=== PATIENT | male | born 1965 | race Caucasian/White ===

== ENCOUNTER 2018-12-30 07:21 | Emergency (ER) | payer OTHER, SELFPAY ==
[2018-12-30] VITALS (7 sets, daily range): BP systolic 155–178; BP diastolic 81–105; PULSE 62–71; RESP 13–18; TEMP 36.9; O2SAT 98–100
--- NOTE | 2018-12-30 07:55 | DI.RAD.S_ITS ---
PROCEDURE: XR CHEST 2V INDICATIONS: dyspnea TECHNIQUE: 2 views of the chest were acquired. COMPARISON: None. FINDINGS: Surgical changes and devices: None. Lungs and pleura: Interstitial prominence and a few Mica B lines most compatible pulmonary edema versus atypical pneumonia. No pleural effusions or pneumothorax. Mediastinum: Mediastinal contours are normal. Heart size is normal. Bones and chest wall: No suspicious bony abnormalities. Soft tissues appear unremarkable. IMPRESSION: Interstitial prominence and Mica B-lines compatible pulmonary edema versus atypical pneumonia. Dictated by: Jessy Vega MD, PhD on 12/30/2018 at 8:22 Approved by: Jessy Vega MD, PhD on 12/30/2018 at 8:23
--- NOTE | 2018-12-30 07:57 | ED.SOB ---
HPI - SOB/Dyspnea General Chief Complaint: Shortness of Breath/Dyspnea Stated Complaint: shortness of breath Time Seen by Provider: 12/30/18 07:32 Source: patient and family Mode of arrival: ambulatory Limitations: no limitations History of Present Illness Patient comes to the emergency department complaining of shortness of breath that has been ongoing, but that seemed worse since last night. Patient states he noticed that whenever he laid down, his chest felt tight, and it felt as though his abdomen was full and he could not get a deep breath in. Patient states this has happened before, but that this time, he does not seem to be getting over it. Patient ended up getting up out of bed and sitting upright in a chair, and states this helped somewhat, but not completely. Patient states he did not really sleep last night because he could not find a comfortable position for his breathing, and also, he was doing a lot of coughing. Patient's states that he was also bringing up a lot of phlegm. Patient states that he has been able to walk around, but he does become out of breath when he does this. He states these are not necessarily new problems, and have been going on for months, since he was diagnosed with end-stage renal disease. Patient does dialysis treatments 3 times a week, and states that at his last visit, they were only able to do dialysis for an hour, because they could not get the needle properly placed. Patient states that normally, his dialysis lasts for 4 hours, and he loses several kg of weight between the beginning in the end. He states this time, he only lost 0.8 kg. Patient states he is due for dialysis treatment today at 4:00 p.m.. Patient states he has no history of any lung disease. No asthma or COPD. He has never been a smoker. Patient states he was not known to have any cardiac issues until undergoing a stress test and coronary artery CT angio this month, which showed ?some blockages?. Patient states this was done down at [facility], because he has seen the transplant team down there, in hopes of having a kidney transplant. He states that they were trying to get him in to see a fruit picker through [facility], but that they gave him an appointment on February 26. Patient states he has been under lot of stress because he is not sure how bad his coronary artery disease is and if his chest symptoms are related to this or his kidney disease. The patient has no history of congestive heart failure. He states that other than the ongoing symptoms since last night, his shortness of breath episodes have been fairly stable. Patient has a history of diabetes and hypertension, but states that his renal failure is thought to have been precipitated by nephritis, which she was diagnosed with a number of years ago, prior to the diagnosis of diabetes or hypertension. 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 Patient states that currently, sitting in the bed, he feels the need to occasionally take a deep breath, but that he is doing a little better now than he was. No current chest pain. Patient states his chest feels ?a little tight?. No radiation. Patient has chronic nausea in the mornings which has been ongoing for months. No diaphoresis or lightheadedness. No other complaints at this time. Related Data Home Medications Medication Instructions Recorded Confirmed carvedilol 12.5 mg PO BID 12/30/18 12/30/18 hydralazine 25 mg PO BID 12/30/18 12/30/18 lisinopril 40 mg PO BID 12/30/18 12/30/18 sevelamer carbonate 1,600 mg PO TID 12/30/18 12/30/18 Allergies Allergy/AdvReac Type Severity Reaction Status Date / Time No Known Allergies Allergy Uncoded 08/19/17 20:24 Review of Systems Constitutional Denies chills, Denies fever(s), Denies lethargy and Denies weakness Eyes Denies change in vision, Denies eye discharge, Denies irritation and Denies loss of vision ENT Ears, Nose, Mouth, and Throat: Denies change in voice, Denies neck pain and Denies sore throat Cardiovascular Denies chest pain, Denies irregular heart rhythm, Denies lightheadedness, Denies palpitations, Reports dyspnea, Reports dyspnea on exertion and Denies orthopnea Respiratory Reports cough, Reports dyspnea, Reports dyspnea on exertion and Denies wheezing Gastrointestinal Gastrointestinal: Denies abdominal pain, Denies change in bowel habits, Denies diarrhea, Denies nausea and Denies vomiting Genitourinary Denies hematuria, Denies flank pain, Denies urinary incontinence and Denies urinary urgency Musculoskeletal Denies neck pain Integumentary/Breasts Denies pruritus, Denies erythema, Denies rash and Denies wounds Neurologic Denies confusion, Denies loss of vision and Denies weakness Psychiatric Denies anxiety, Denies confusion, Denies depression, Denies homicidal ideation and Denies suicidal ideation Endocrine Denies palpitations Hematologic/Lymphatic Denies easy bruising Allergic/Immunologic Denies wheezing [facility] Medical History Presence of arterial-venous shunt (for dialysis) (Acute) End stage renal disease on dialysis (Acute) Diabetes (Acute) HTN (hypertension) (Acute) Social History (Updated 12/30/18 @ 08:06 by Mary Fang MD) Smoking Status: Never smoker Exam Narrative Exam Narrative: Patient briskly ambulates to the exam room without difficulty, speaking in full sentences while ambulating, without labored respirations. Initial Vital Signs Initial Vital Signs: Vital Signs Temperature 98.4 F 12/30/18 07:30 Pulse Rate 71 12/30/18 07:30 Respiratory Rate 14 12/30/18 07:30 Blood Pressure 165/105 H 12/30/18 07:30 Pulse Oximetry 100 12/30/18 07:30 Const General: cooperative and well developed Nutritional Appearance: well nourished Orientation: alert, awake, oriented x3 and not confused [facility] Head: normocephalic and atraumatic Ears: external ears normal Nose: external nose normal and No nasal discharge Face and sinus: face symmetric and No dry mucous membranes Mouth: oral mucosae normal and moist mucous membranes Teeth and gingiva: dentition normal Eyes General: appearance normal, both eyes and all related structures Eyelids: eyelids normal Conjunctivae: conjunctivae normal Sclera: sclerae normal Pupils: PERRL EOM: EOM intact bilaterally Neck Neck: normal visual inspection, trachea midline, No lymphadenopathy, No midline deformity and No JVD Lymphatic: No lymphedema Chest Chest: normal inspection of the chest Resp Effort & Inspection: normal respiratory effort, able to speak in complete sentences, no respiratory distress and no use of accessory muscles Auscultation: clear to auscultation bilaterally, no rales, no rhonchi and no wheezes Other: Patient is able to carry on conversation without difficulty during the entire history taking. Cardio Rate: regular rate Rhythm: regular rhythm Heart Sounds: no click, no gallops, no murmurs and no rubs Pulses: normal peripheral pulses GI Inspection: non-distended Palpation: soft, no hepatosplenomegaly, No guarding, No pulsatile mass and No tender Auscultation: normal bowel sounds Back/Spine/Pelvis Back: No CVA tenderness Cervical Spine: cervical ROM normal and No pain with cervical ROM Thoracic/Lumbar Spine: thoracic and lumbar spine normal to inspection Skin General: no rashes or lesions noted, No jaundice and No petechiae Neuro General: alert, oriented x3, gait normal and no focal motor deficits Speech: speech normal Extrem General: full ROM, no clubbing, cyanosis or edema, no pedal edema and no calf tenderness Psych Appearance: well kempt Mental Status: mental status grossly normal Attitude: cooperative Thought Content: normal and suicidality Judgment: judgment good Course Course Narrative: Patient was evaluated in the emergency department with EKG, labs, and chest x-ray. Patient's BNP was elevated, and his chest x-ray showed findings consistent with pulmonary edema. His records were ordered from [facility]. After significant delay in receiving the records from [facility], I did review the patient's stress test, and found that the patient had been found to have mild diffuse hypokinesis of the inferior portion and apex of his heart. This was interpreted as likely representing multi-vessel disease including the RCA and LAD distributions. I spoke with Dr. Doss of cardiology at [facility], and he stated that actually, the patient had an appointment scheduled with the [facility] clinic with a fruit picker specializing in dialysis patients on January 03, just a few days from now. Dr. Doss felt that the most optimal plan for the patient would be to get his dialysis as scheduled today, and see the renal fruit picker on January 03. He did not feel the patient needed to be transferred or admitted for emergent catheterization at this time. I did speak with the patient, who is feeling a little better, and he was agreeable to this plan. I have had a long discussion with the patient and regarding the patient's symptoms and when to come to the emergency department. The is concerned that she does not know the difference between an exacerbation related to fluid overload verses a cardiac event. I have advised her that if the patient develops severe symptoms as he did last night, especially if they are not resolving, it does not matter what the etiology is and that he should be brought in regardless. Orders Ordered: Discontinued Medications Acetaminophen (Tylenol) 650 mg PO NOW ONE Stop: 12/30/18 09:17 Last Admin: 12/30/18 09:21 Dose: 650 mg Vital Signs - 8 hr 12/30/18 12:00 12/30/18 12:30 12/30/18 13:00 Pulse Rate 69 65 65 Respiratory Rate 17 16 18 Blood Pressure [Right Arm] 176/95 H 165/81 H 166/86 H Pulse Oximetry 99 100 99 MDM - SOB/Dyspnea Medical Records Attestation: I reviewed the patient's medical records. Lab Data Attestation: I reviewed the patient's lab results. Result diagrams: 12/30/18 07:30 12/30/18 07:30 Lab Results 12/30/18 12/30/18 12/30/18 Range/Units 07:30 07:30 10:00 WBC 10.9 (4.5-11.0) X10^3/uL RBC 3.74 L (4.5-5.9) X10^6/uL Hgb 11.1 L (13.5-17.5) g/dL Hct 33.0 L (41-53) % MCV 88.2 (80-100) fL MCH 29.8 (26-34) PG MCHC 33.8 (30-36) % RDW 15.1 H (11.6-14.8) % Plt Count 245 (150-400) X10^3/uL Neut % (Auto) 64.5 (50-75) % Lymph % (Auto) 19.4 L (25-40) % Desha % (Auto) 11.2 (3-14) % Eos % (Auto) 4.2 H (2-4) % Baso % (Auto) 0.7 (0-2) % Neut # (Auto) 7000 (0535-6951) /uL Lymph # (Auto) 2100 (2680-4678) /uL Desha # (Auto) 1200 H (0-900) /uL Eos # (Auto) 500 H (0-450) /uL Baso # (Auto) 100 (0-100) /uL Sodium 138 (137-145) mmol/L Potassium 4.2 (3.4-5.1) mmol/L Chloride 106 (98-107) mmol/L Carbon Dioxide 21 L (22-32) mmol/L BUN 47 H (9-20) mg/dL Creatinine 9.50 H* (0.66-1.25) mg/dL Estimated GFR 5.8 L (>60) mL/min BUN/Creatinine Ratio 4.9 L (6-22) Glucose 129 H (70-100) mg/dL Calcium 9.6 (8.4-10.2) mg/dL Total Bilirubin 0.5 (0.2-1.3) mg/dL AST 23 (17-59) IU/L ALT 19 L (21-72) IU/L Alkaline Phosphatase 92 (38-126) U/L Total Creatine Kinase 134 (55-170) U/L CK-MB (CK-2) 3.99 H (<2.37) ng/mL CK-MB (CK-2) Rel Index 3.0 (1.5-5.0) % Troponin I 0.048 H 0.044 H (0.01-0.034) ng/mL B-Natriuretic Peptide 1360 H (<100) Total Protein 5.7 L (6.3-8.2) g/dL Albumin 3.0 L (3.5-5.0) g/dL Globulin 2.7 (1.7-4.1) g/dL Albumin/Globulin Ratio 1.1 (1.0-2.8) Imaging Data Chest x-ray: Radiologist's impression: [address] [address] XRay Report Signed Patient: Ethan Remy CMR#: [id number] : 1965Acct:[id number] Age/Sex: 53 / MDate of Service: 12/30/18 Loc: ED Accession Number: [id number] Procedure: XR chest 2V Ordering Provider: Mary Fang MD PROCEDURE: XR CHEST 2V INDICATIONS: dyspnea TECHNIQUE: 2 views of the chest were acquired. COMPARISON: None. FINDINGS: Surgical changes and devices: None. Lungs and pleura: Interstitial prominence and a few Mica B lines most compatible pulmonary edema versus atypical pneumonia. No pleural effusions or pneumothorax. Mediastinum: Mediastinal contours are normal. Heart size is normal. Bones and chest wall: No suspicious bony abnormalities. Soft tissues appear unremarkable. IMPRESSION: Interstitial prominence and Mica B-lines compatible pulmonary edema versus atypical pneumonia. Dictated by: Jessy Vega MD, PhD on 12/30/2018 at 8:22 Approved by: Jessy Vega MD, PhD on 12/30/2018 at 8:23 ECG Data Attestation: I personally reviewed and interpreted this ECG as follows: (See below) Interpretation: Twelve lead EKG performed December 30, 2018 at 7:28 a.m., as follows: Regular ventricular rhythm with a rate of 63 beats per minute IN interval 174 milliseconds QRS duration 95 milliseconds QTC interval\[address] T wave changes No ectopy Interpretation: Normal sinus rhythm; left ventricular hypertrophy and ST T wave change; no signs of acute ischemia; abnormal EKG as interpreted by ED MD. Discharge Plan Departure Patient Disposition: Home Clinical Impression: End stage renal disease on dialysis, Acute dyspnea Congestive heart failure Qualifiers: Heart failure type: unspecified Heart failure chronicity: acute on chronic Qualified Code(s): I50.9 - Heart failure, unspecified Fluid overload Qualifiers: Hypervolemia type: other Qualified Code(s): E87.79 - Other fluid overload Coronary artery disease Qualifiers: Coronary Disease-Associated Artery/Lesion type: [place] artery [place] vs. transplanted heart: [place] heart Associated angina: with unspecified angina Qualified Code(s): I25.119 - Atherosclerotic heart disease of [place] coronary artery with unspecified angina pectoris Discharge Date/Time: 12/30/18 13:11 Interventions: ED Discharge Assessment Last Done: 12/30/18 13:11 Instructions: DI for Kidney Failure, DI for Shortness of Breath Activity Restrictions/Additional Instructions: Your case has been discussed with Dr. Doss, the on-call fruit picker at [facility]. He has recommended that you follow up as scheduled on January [address] presley nickerson, the fruit picker specializing in kidney failure patients. Your appointment is at 10:00 a.m. in the morning, but you should get there at least 30 minutes early. The address of the clinic is [address] [place] [address]. The phone number is [phone]. Please follow up for your dialysis at 4:00 p.m. today, as scheduled. If you continue to feel severely short of breath after the dialysis, to the point where you are concerned, please return to the emergency department for re-evaluation. Prescriptions: No Action carvedilol 12.5 mg tablet 12.5 mg PO BID RF: 0 hydralazine 25 mg tablet 25 mg PO BID RF: 0 lisinopril 40 mg tablet 40 mg PO BID RF: 0 sevelamer carbonate 800 mg tablet 1,600 mg PO TID RF: 0 Referrals: Ethan Marie MD [Primary Care Provider] -
[2018-12-30 08:08] LABS: Alanine Aminotransferase 19 IU/L (21-72); Albumin Globulin Ratio 1.1 (1.0-2.8); Alkaline Phosphatase 92 U/L (38-126); Aspartate Aminotransferase 23 IU/L (17-59); BUN Creatinine Ratio 4.9 (6-22); Bilirubin Total 0.5 mg/dL (0.2-1.3); Blood Urea Nitrogen 47 mg/dL (9-20); Calcium 9.6 mg/dL (8.4-10.2); Carbon Dioxide 21 mmol/L (22-32); Chloride 106 mmol/L (98-107); Creatine Kinase 134 U/L (55-170); Estimated Glomerular Filt Rate 5.8 mL/min (>60); Globulin 2.7 g/dL (1.7-4.1); Glucose 129 mg/dL (70-100); HEMOLYSIS < 15 (0-50); Potassium 4.2 mmol/L (3.4-5.1); Sodium 138 mmol/L (137-145); Total Protein 5.7 g/dL (6.3-8.2)
--- NOTE | 2018-12-30 08:08 | ED_ITS ---
HPI - SOB/Dyspnea General Chief Complaint: Shortness of Breath/Dyspnea Stated Complaint: shortness of breath Time Seen by Provider: 12/30/18 07:32 Source: patient and family Mode of arrival: ambulatory Limitations: no limitations History of Present Illness Patient comes to the emergency department complaining of shortness of breath that has been ongoing, but that seemed worse since last night. Patient states he noticed that whenever he laid down, his chest felt tight, and it felt as though his abdomen was full and he could not get a deep breath in. Patient states this has happened before, but that this time, he does not seem to be getting over it. Patient ended up getting up out of bed and sitting upright in a chair, and states this helped somewhat, but not completely. Patient states he did not really sleep last night because he could not find a comfortable position for his breathing, and also, he was doing a lot of coughing. Patient's states that he was also bringing up a lot of phlegm. Patient states that he has been able to walk around, but he does become out of breath when he does this. He states these are not necessarily new problems, and have been going on for months, since he was diagnosed with end-stage renal disease. Patient does dialysis treatments 3 times a week, and states that at his last visit, they were only able to do dialysis for an hour, because they could not get the needle properly placed. Patient states that normally, his dialysis lasts for 4 hours, and he loses several kg of weight between the beginning in the end. He states this time, he only lost 0.8 kg. Patient states he is due for dialysis treatment today at 4:00 p.m.. Patient states he has no history of any lung disease. No asthma or COPD. He has never been a smoker. Patient states he was not known to have any cardiac issues until undergoing a stress test and coronary artery CT angio this month, which showed ?some blockages?. Patient states this was done down at [facility], because he has seen the transplant team down there, in hopes of having a kidney transplant. He states that they were trying to get him in to see a warper creeler through [facility], but that they gave him an appointment on February 26. Patient states he has been under lot of stress because he is not sure how bad his coronary artery disease is and if his chest symptoms are related to this or his kidney disease. The patient has no history of congestive heart failure. He states that other than the ongoing symptoms since last night, his shortness of breath episodes have been fairly stable. Patient has a history of diabetes and hypertension, but states that his renal failure is thought to have been precipitated by nephritis, which she was diagnosed with a number of years ago, prior to the diagnosis of diabetes or hypertension. 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 Patient states that currently, sitting in the bed, he feels the need to occasionally take a deep breath, but that he is doing a little better now than he was. No current chest pain. Patient states his chest feels ?a little tight?. No radiation. Patient has chronic nausea in the mornings which has been ongoing for months. No diaphoresis or lightheadedness. No other complaints at this time. Related Data Home Medications Medication Instructions Recorded Confirmed carvedilol 12.5 mg PO BID 12/30/18 12/30/18 hydralazine 25 mg PO BID 12/30/18 12/30/18 lisinopril 40 mg PO BID 12/30/18 12/30/18 sevelamer carbonate 1,600 mg PO TID 12/30/18 12/30/18 Allergies Allergy/AdvReac Type Severity Reaction Status Date / Time No Known Allergies Allergy Uncoded 08/19/17 20:24 Review of Systems Constitutional Denies chills, Denies fever(s), Denies lethargy and Denies weakness Eyes Denies change in vision, Denies eye discharge, Denies irritation and Denies loss of vision ENT Ears, Nose, Mouth, and Throat: Denies change in voice, Denies neck pain and Denies sore throat Cardiovascular Denies chest pain, Denies irregular heart rhythm, Denies lightheadedness, Denies palpitations, Reports dyspnea, Reports dyspnea on exertion and Denies orthopnea Respiratory Reports cough, Reports dyspnea, Reports dyspnea on exertion and Denies wheezing Gastrointestinal Gastrointestinal: Denies abdominal pain, Denies change in bowel habits, Denies diarrhea, Denies nausea and Denies vomiting Genitourinary Denies hematuria, Denies flank pain, Denies urinary incontinence and Denies urinary urgency Musculoskeletal Denies neck pain Integumentary/Breasts Denies pruritus, Denies erythema, Denies rash and Denies wounds Neurologic Denies confusion, Denies loss of vision and Denies weakness Psychiatric Denies anxiety, Denies confusion, Denies depression, Denies homicidal ideation and Denies suicidal ideation Endocrine Denies palpitations Hematologic/Lymphatic Denies easy bruising Allergic/Immunologic Denies wheezing [facility] Medical History Presence of arterial-venous shunt (for dialysis) (Acute) End stage renal disease on dialysis (Acute) Diabetes (Acute) HTN (hypertension) (Acute) Social History (Updated 12/30/18 @ 08:06 by Mary Fang MD) Smoking Status: Never smoker Exam Narrative Exam Narrative: Patient briskly ambulates to the exam room without difficulty, speaking in full sentences while ambulating, without labored respirations. Initial Vital Signs Initial Vital Signs: Vital Signs Temperature 98.4 F 12/30/18 07:30 Pulse Rate 71 12/30/18 07:30 Respiratory Rate 14 12/30/18 07:30 Blood Pressure 165/105 H 12/30/18 07:30 Pulse Oximetry 100 12/30/18 07:30 Const General: cooperative and well developed Nutritional Appearance: well nourished Orientation: alert, awake, oriented x3 and not confused [facility] Head: normocephalic and atraumatic Ears: external ears normal Nose: external nose normal and No nasal discharge Face and sinus: face symmetric and No dry mucous membranes Mouth: oral mucosae normal and moist mucous membranes Teeth and gingiva: dentition normal Eyes General: appearance normal, both eyes and all related structures Eyelids: eyelids normal Conjunctivae: conjunctivae normal Sclera: sclerae normal Pupils: PERRL EOM: EOM intact bilaterally Neck Neck: normal visual inspection, trachea midline, No lymphadenopathy, No midline deformity and No JVD Lymphatic: No lymphedema Chest Chest: normal inspection of the chest Resp Effort & Inspection: normal respiratory effort, able to speak in complete sentences, no respiratory distress and no use of accessory muscles Auscultation: clear to auscultation bilaterally, no rales, no rhonchi and no wheezes Other: Patient is able to carry on conversation without difficulty during the entire history taking. Cardio Rate: regular rate Rhythm: regular rhythm Heart Sounds: no click, no gallops, no murmurs and no rubs Pulses: normal peripheral pulses GI Inspection: non-distended Palpation: soft, no hepatosplenomegaly, No guarding, No pulsatile mass and No tender Auscultation: normal bowel sounds Back/Spine/Pelvis Back: No CVA tenderness Cervical Spine: cervical ROM normal and No pain with cervical ROM Thoracic/Lumbar Spine: thoracic and lumbar spine normal to inspection Skin General: no rashes or lesions noted, No jaundice and No petechiae Neuro General: alert, oriented x3, gait normal and no focal motor deficits Speech: speech normal Extrem General: full ROM, no clubbing, cyanosis or edema, no pedal edema and no calf tenderness Psych Appearance: well kempt Mental Status: mental status grossly normal Attitude: cooperative Thought Content: normal and suicidality Judgment: judgment good Course Course Narrative: Patient was evaluated in the emergency department with EKG, labs, and chest x-ray. Patient's BNP was elevated, and his chest x-ray showed findings consistent with pulmonary edema. His records were ordered from [facility]. After significant delay in receiving the records from [facility], I did review the patient's stress test, and found that the patient had been found to have mild diffuse hypokinesis of the inferior portion and apex of his heart. This was interpreted as likely representing multi-vessel disease including the RCA and LAD distributions. I spoke with Dr. Doss of cardiology at [facility], and he stated that actually, the patient had an appointment scheduled with the [facility] clinic with a warper creeler specializing in dialysis patients on January 03, just a few days from now. Dr. Doss felt that the most optimal plan for the patient would be to get his dialysis as scheduled today, and see the renal warper creeler on January 03. He did not feel the patient needed to be transferred or admitted for emergent catheterization at this time. I did speak with the patient, who is feeling a little better, and he was agreeable to this plan. I have had a long discussion with the patient and regarding the patient's symptoms and when to come to the emergency department. The is concerned that she does not know the difference between an exacerbation related to fluid overload verses a cardiac event. I have advised her that if the patient develops severe symptoms as he did last night, especially if they are not resolving, it does not matter what the etiology is and that he should be brought in regardless. Orders Ordered: Discontinued Medications Acetaminophen (Tylenol) 650 mg PO NOW ONE Stop: 12/30/18 09:17 Last Admin: 12/30/18 09:21 Dose: 650 mg Vital Signs - 8 hr 12/30/18 12:00 12/30/18 12:30 12/30/18 13:00 Pulse Rate 69 65 65 Respiratory Rate 17 16 18 Blood Pressure [Right Arm] 176/95 H 165/81 H 166/86 H Pulse Oximetry 99 100 99 MDM - SOB/Dyspnea Medical Records Attestation: I reviewed the patient's medical records. Lab Data Attestation: I reviewed the patient's lab results. Result diagrams: 12/30/18 07:30 12/30/18 07:30 Lab Results 12/30/18 12/30/18 12/30/18 Range/Units 07:30 07:30 10:00 WBC 10.9 (4.5-11.0) X10^3/uL RBC 3.74 L (4.5-5.9) X10^6/uL Hgb 11.1 L (13.5-17.5) g/dL Hct 33.0 L (41-53) % MCV 88.2 (80-100) fL MCH 29.8 (26-34) PG MCHC 33.8 (30-36) % RDW 15.1 H (11.6-14.8) % Plt Count 245 (150-400) X10^3/uL Neut % (Auto) 64.5 (50-75) % Lymph % (Auto) 19.4 L (25-40) % Lane % (Auto) 11.2 (3-14) % Eos % (Auto) 4.2 H (2-4) % Baso % (Auto) 0.7 (0-2) % Neut # (Auto) 7000 (5787-1901) /uL Lymph # (Auto) 2100 (9392-1156) /uL Lane # (Auto) 1200 H (0-900) /uL Eos # (Auto) 500 H (0-450) /uL Baso # (Auto) 100 (0-100) /uL Sodium 138 (137-145) mmol/L Potassium 4.2 (3.4-5.1) mmol/L Chloride 106 (98-107) mmol/L Carbon Dioxide 21 L (22-32) mmol/L BUN 47 H (9-20) mg/dL Creatinine 9.50 H* (0.66-1.25) mg/dL Estimated GFR 5.8 L (>60) mL/min BUN/Creatinine Ratio 4.9 L (6-22) Glucose 129 H (70-100) mg/dL Calcium 9.6 (8.4-10.2) mg/dL Total Bilirubin 0.5 (0.2-1.3) mg/dL AST 23 (17-59) IU/L ALT 19 L (21-72) IU/L Alkaline Phosphatase 92 (38-126) U/L Total Creatine Kinase 134 (55-170) U/L CK-MB (CK-2) 3.99 H (<2.37) ng/mL CK-MB (CK-2) Rel Index 3.0 (1.5-5.0) % Troponin I 0.048 H 0.044 H (0.01-0.034) ng/mL B-Natriuretic Peptide 1360 H (<100) Total Protein 5.7 L (6.3-8.2) g/dL Albumin 3.0 L (3.5-5.0) g/dL Globulin 2.7 (1.7-4.1) g/dL Albumin/Globulin Ratio 1.1 (1.0-2.8) Imaging Data Chest x-ray: Radiologist's impression: [address] [address] XRay Report Signed Patient: Ethan Remy CMR#: [id number] : 1965Acct:[id number] Age/Sex: 53 / MDate of Service: 12/30/18 Loc: ED Accession Number: [id number] Procedure: XR chest 2V Ordering Provider: Mary Fang MD PROCEDURE: XR CHEST 2V INDICATIONS: dyspnea TECHNIQUE: 2 views of the chest were acquired. COMPARISON: None. FINDINGS: Surgical changes and devices: None. Lungs and pleura: Interstitial prominence and a few Mica B lines most compatible pulmonary edema versus atypical pneumonia. No pleural effusions or pneumothorax. Mediastinum: Mediastinal contours are normal. Heart size is normal. Bones and chest wall: No suspicious bony abnormalities. Soft tissues appear unremarkable. IMPRESSION: Interstitial prominence and Mica B-lines compatible pulmonary edema versus atypical pneumonia. Dictated by: Jessy Vega MD, PhD on 12/30/2018 at 8:22 Approved by: Jessy Vega MD, PhD on 12/30/2018 at 8:23 ECG Data Attestation: I personally reviewed and interpreted this ECG as follows: (See below) Interpretation: Twelve lead EKG performed December 30, 2018 at 7:28 a.m., as follows: Regular ventricular rhythm with a rate of 63 beats per minute VA interval 174 milliseconds QRS duration 95 milliseconds QTC interval\[address] T wave changes No ectopy Interpretation: Normal sinus rhythm; left ventricular hypertrophy and ST T wave change; no signs of acute ischemia; abnormal EKG as interpreted by ED MD. Discharge Plan Departure Patient Disposition: Home Clinical Impression: End stage renal disease on dialysis, Acute dyspnea Congestive heart failure Qualifiers: Heart failure type: unspecified Heart failure chronicity: acute on chronic Qualified Code(s): I50.9 - Heart failure, unspecified Fluid overload Qualifiers: Hypervolemia type: other Qualified Code(s): E87.79 - Other fluid overload Coronary artery disease Qualifiers: Coronary Disease-Associated Artery/Lesion type: [place] artery [place] vs. transplanted heart: [place] heart Associated angina: with unspecified angina Qualified Code(s): I25.119 - Atherosclerotic heart disease of [place] coronary artery with unspecified angina pectoris Discharge Date/Time: 12/30/18 13:11 Interventions: ED Discharge Assessment Last Done: 12/30/18 13:11 Instructions: DI for Kidney Failure, DI for Shortness of Breath Activity Restrictions/Additional Instructions: Your case has been discussed with Dr. Doss, the on-call warper creeler at [facility]. He has recommended that you follow up as scheduled on January [address] presley nickerson, the warper creeler specializing in kidney failure patients. Your appointment is at 10:00 a.m. in the morning, but you should get there at least 30 minutes early. The address of the clinic is [address] [place] [address]. The phone number is [phone]. Please follow up for your dialysis at 4:00 p.m. today, as scheduled. If you continue to feel severely short of breath after the dialysis, to the point where you are concerned, please return to the emergency department for re-evaluation. Prescriptions: No Action carvedilol 12.5 mg tablet 12.5 mg PO BID RF: 0 hydralazine 25 mg tablet 25 mg PO BID RF: 0 lisinopril 40 mg tablet 40 mg PO BID RF: 0 sevelamer carbonate 800 mg tablet 1,600 mg PO TID RF: 0 Referrals: Ethan Marie MD [Primary Care Provider] -
[2018-12-30 08:09] LABS: Add Manual Diff / Slide Review NO; Basophils Absolute Auto 100 /uL (0-100); Basophils Percent Auto 0.7 % (0-2); Eosinophils Absolute Auto 500 /uL (0-450); Eosinophils Percent Auto 4.2 % (2-4); Hemoglobin 11.1 g/dL (13.5-17.5); Lymphocytes Absolute Auto 2100 /uL (1100-4500); Lymphocytes Percent Auto 19.4 % (25-40); Mean Corpuscular HGB Conc 33.8 % (30-36); Mean Corpuscular Hemoglobin 29.8 PG (26-34); Mean Corpuscular Volume 88.2 fL (80-100); Monocytes Absolute Auto 1200 /uL (0-900); Monocytes Percent Auto 11.2 % (3-14); Neutrophils Absolute Auto 7000 /uL (1500-7000); Neutrophils Percent Auto 64.5 % (50-75); Platelet Count 245 X10^3/uL (150-400); Red Blood Cell Count 3.74 X10^6/uL (4.5-5.9); Red Cell Distribution Width 15.1 % (11.6-14.8); White Blood Cell Count 10.9 X10^3/uL (4.5-11.0)
[2018-12-30 08:20] LABS: Troponin I 0.048 ng/mL (0.01-0.034)
[2018-12-30 08:23] LABS: Creatine Kinase MB 3.99 ng/mL (<2.37)
[2018-12-30 08:31] LABS: B Type Natriuretic Peptide 1360 (<100)
[2018-12-30] MEDS: ACETAMINOPHEN 325 MG TABLET 650 MG PO (09:21)
[2018-12-30 10:32] LABS: Troponin I 0.044 ng/mL (0.01-0.034)
== END 2018-12-30 13:11 | disposition home or self-care (01) ==
PROVIDERS: Emergency Provider Emergency Medicine; PCP Family Medicine
DX: N18.6 End stage renal disease (principal); Z99.2 Dependence on renal dialysis; R06.00 Dyspnea, unspecified; I50.9 Heart failure, unspecified; E87.79 Other fluid overload; I25.119 Atherosclerotic heart disease of native coronary artery with unspecified angina pectoris
CPT/HCPCS: 36415; 36591; 71046; 80053; 82550; 82553; 83880; 84484; 85025; 93005; 93041; 99284; 99285

== ENCOUNTER 2019-12-12 03:20 | Emergency (ER) | payer OTHER, MEDICARE, SELFPAY ==
[2019-12-12 03:25] VITALS: BP 232/116; PULSE 77; RESP 15; TEMP 37.1; O2SAT 98; BMI 28.9
--- NOTE | 2019-12-12 03:35 | DI.CT.S_ITS ---
PROCEDURE: CT KIDNEY URETER BLADDER (KUB) INDICATIONS: left flank and llq abd pain TECHNIQUE: Noncontrast 5 mm thick sections acquired from the diaphragms to the symphysis. 5 mm thick coronal and sagittal reformats were then performed. For radiation dose reduction, the following was used: automated exposure control, adjustment of mA and/or kV according to patient size. COMPARISON: None. FINDINGS: Image quality: Excellent. Lung bases: Lung bases are clear. Heart size is normal. Urinary system: Both kidneys are normal in size. 2-3 mm stone in the lower pole of the right kidney which could represent a nonobstructing stone are renal artery calcification. No hydronephrosis. Mild bilateral perinephric fat stranding. Both ureters appear non-dilated throughout their expected courses. Mild urinary bladder wall thickening. No bladder stones identified. Prostate gland is mildly enlarged. Other solid organs: Liver is normal in size. Gallbladder is normal. Pancreas is normal in contours. Spleen is normal in size. No adrenal nodules. Peritoneum and bowel: Unenhanced bowel loops demonstrate normal wall thickness and caliber. No free fluid or air. The appendix is normal. Nodes and vessels: No retroperitoneal or mesenteric adenopathy by size criteria. Aorta and inferior vena cava are normal in caliber. Abdominal wall: No ventral hernias. Pelvis: No free pelvic fluid. No inguinal adenopathy. Bilateral fat containing inguinal hernias. Bones: No suspicious bony lesions. No vertebral body compression fractures. Spine degenerative disc disease and facet arthropathy. IMPRESSION: 1. 2-3 mm nonobstructing right renal stone versus renal vascular calcification. 2. No hydronephrosis. 3. Mild bilateral perinephric stranding. Finding is nonspecific but can be related to urinary tract infection. Recommend correlation with urinalysis data. 4. Mild urinary bladder wall thickening which could be due to underdistention versus cystitis. Recommend correlation with urinalysis data. Dictated by: Jessy Vega MD, PhD on 12/12/2019 at 8:15 Approved by: Jessy Vega MD, PhD on 12/12/2019 at 8:23
--- NOTE | 2019-12-12 03:36 | ED_ITS ---
HPI - General Adult General Chief complaint: Back Pain/Injury Stated complaint: back pain, on kidney dialysis Time Seen by Provider: 12/12/19 03:23 History of Present Illness HPI narrative: 54-year-old gentleman with a history of chronic renal failure on hemodialysis, hypertension coronary artery disease presents with 48 hours of increasing left flank and left lower quadrant pain. Not associated with vomiting, fevers, chest pain, palpitation. He notes that he has not had a bowel movement in 3 days but has been passing gas. No cough, chills and he has maintained his usual dialysis schedule of Sunday and Sunday. He describes the pain as severe, 8/10, sharp stabbing not radiating and no radicular complaints. Related Data Home Medications Medication Instructions Recorded Confirmed carvedilol 12.5 mg PO BID 12/30/18 12/30/18 hydralazine 25 mg PO BID 12/30/18 12/30/18 lisinopril 40 mg PO BID 12/30/18 12/30/18 sevelamer carbonate 1,600 mg PO TID 12/30/18 12/30/18 Allergies Allergy/AdvReac Type Severity Reaction Status Date / Time No Known Drug Allergies Allergy Verified 12/12/19 04:17 Review of Systems Review of Systems Narrative: He describes a chronic cough Pertinent positive and negative findings as per HPI Remainder of review of systems is otherwise unremarkable for Constitutional: Fevers, chills, weakness ENT: No sore throat, neck pain, ear pain MS: Muscle weakness, numbness, joint swelling or warmth Skin: Rashes, nonhealing lesions Neuro: Syncope, dizziness, tingling Patient History Medical History Diabetes (Acute) End stage renal disease on dialysis (Acute) HTN (hypertension) (Acute) Presence of arterial-venous shunt (for dialysis) (Acute) Social History Smoking Status: Never smoker Smoking Status: Never smoker Substance Use Type: does not use Exam Narrative Exam Narrative: General: Healthy appearing, in mild distress. Able to give a complete and coherent history. Well-nourished well-developed HEENT: Moist mucous membranes, normal sclera with reactive pupils, Neck: No JVD, supple Respiratory: Lungs are clear to auscultation, no wheezing no rales no rhonchi. Full and symmetrical air movement Cardiac: Regular rate and rhythm no murmurs no bruits Abdomen: Soft tender in the left lower quadrant with left flank pain, good bowel tones Skin: Warm and dry, no rashes Neurologic: Grossly neurologically intact with no obvious asymmetries or abnormalities Extremities: No trauma, well perfused, good thrill in the left arm AV fistula Psych: Cooperative, appropriate insight and affect Initial Vital Signs Initial Vital Signs: Vital Signs Temperature 98.7 F 12/12/19 03:25 Pulse Rate 77 12/12/19 03:25 Respiratory Rate 15 12/12/19 03:25 Blood Pressure 232/116 H 12/12/19 03:25 Pulse Oximetry 98 12/12/19 03:25 Course Orders Ordered: ED Orders 12/12/19 03:34 Urinalysis and Microscopic Stat 12/12/19 03:35 CT kidney ureter bladder (KUB) Stat 12/12/19 03:50 Complete Blood Count AUTO DIFF Stat Comprehensive Metabolic Panel Stat Lipase Stat Ondansetron HCl (Zofran) 4 mg IV NOW PRN PRN Reason: nausea Last Admin: 12/12/19 03:52 Dose: 4 mg Documented by: HELLEN Discontinued Medications Hydromorphone HCl (Dilaudid) 1 mg IV NOW ONE Stop: 12/12/19 03:34 Last Admin: 12/12/19 03:47 Dose: 1 mg Documented by: HELLEN Oxycodone/Acetaminophen (Percocet 5/325) 1 tab PO NOW ONE Stop: 12/12/19 04:41 Oxycodone/Acetaminophen (Endocet 5/325 Prepack) 1 bottle MISC SEEINSTR ONE Stop: 12/12/19 04:41 Vital Signs Vital signs: Vital Signs - 8 hr 12/12/19 03:25 Temperature 98.7 F Pulse Rate 77 Respiratory Rate 15 Blood Pressure 232/116 H Pulse Oximetry 98 Medical Decision Making Medical Records Medical records reviewed: Yes I reviewed the patient's medical records. Lab Data Lab results reviewed: Yes I reviewed the patient's lab results. Result diagrams: 12/12/19 03:50 12/12/19 03:50 Labs: Lab Results 12/12/19 12/12/19 Range/Units 03:50 03:50 WBC 9.3 (4.5-11.0) X10^3/uL RBC 4.20 L (4.5-5.9) X10^6/uL Hgb 12.3 L (13.5-17.5) g/dL Hct 37.4 L (41-53) % MCV 89.2 (80-100) fL MCH 29.3 (26-34) PG MCHC 32.8 (30-36) % RDW 15.9 H (11.6-14.8) % Plt Count 187 (150-400) X10^3/uL Neut % (Auto) 57.3 (50-75) % Lymph % (Auto) 24.2 L (25-40) % [place] % (Auto) 15.6 H (3-14) % Eos % (Auto) 2.0 (2-4) % Baso % (Auto) 0.9 (0-2) % Neut # (Auto) 5300 (3896-5472) /uL Lymph # (Auto) 2200 (9191-7243) /uL [place] # (Auto) 1400 H (0-900) /uL Eos # (Auto) 200 (0-450) /uL Baso # (Auto) 100 (0-100) /uL Sodium 134 L (137-145) mmol/L Potassium 4.9 (3.4-5.1) mmol/L Chloride 95 L (98-107) mmol/L Carbon Dioxide 28 (22-32) mmol/L BUN 43 H (9-20) mg/dL Creatinine 8.66 H* (0.66-1.25) mg/dL Estimated GFR 6.4 L (>60) mL/min BUN/Creatinine Ratio 5.0 L (6-22) Glucose 125 H (70-100) mg/dL Calcium 9.4 (8.4-10.2) mg/dL Total Bilirubin 0.6 (0.2-1.3) mg/dL AST 21 (17-59) IU/L ALT 21 (<50) IU/L Alkaline Phosphatase 74 (38-126) U/L Total Protein 6.5 (6.3-8.2) g/dL Albumin 3.9 (3.5-5.0) g/dL Globulin 2.6 (1.7-4.1) g/dL Albumin/Globulin Ratio 1.5 (1.0-2.8) Lipase 424 H (23-300) U/L Imaging Data CT scan - abdomen/pelvis: Radiologist's Impression: Mild bilateral perinephric inflammatory changes left greater than right which nonspecific finding but could be related to infection, bladder wall thickening and mild prostatic enlargement. No evidence of colitis, diverticulitis, bowel obstruction, obstructive uropathy or acute appendicitis Electronically signed December 12, 2019 4:20am Dr Mana Hopkins [facility] Narrative Medical decision making narrative: Two days of increasing left back/flank/left lower quadrant pain without fever. Labs are remarkable only for his chronic kidney disease. CT findings with the perinephric changes in the bladder wall thickening are likely related to his chronic kidney disease and dialysis and with a normal white blood cell count and the lack of fever am not suspicious for any type of infection. Most likely diagnosis at this point he is musculoskeletal pain. He responded nicely to Dilaudid. Given workup at this time, I believe it is safe to simply treat the pain directly and will send him home with a prescription for Percocet to be used sparingly. Did recommend MiraLax to help treat his current constipation and prevent future constipation while he is using narcotics. Patient is safe for home discharge Discharge Plan Departure Patient Disposition: Home Clinical Impression: Acute low back pain Qualifiers: Back pain laterality: left Sciatica presence: without sciatica Qualified Code(s): M54.5 - Low back pain Instructions: DI for Low Back Pain Activity Restrictions/Additional Instructions: Thank you for coming in today With your workup I did not find an acute life-threatening cause to explain the left flank, back, and left lower quadrant pain that you have been experiencing Specifically, there is no kidney stone, diverticulitis, appendicitis, bowel obstruction, kidney infection or abscess. I suspect that the pain is related to musculoskeletal low back pain. You recei shabnam a dose of Dilaudid in the emergency department in your pain and blood pressure were both improved. I believe that your constipation is present but not significantly contributing to this pain. Using narcotics to treat the pain will make the constipation worse. I would recommend MiraLax 1 cap full dissolved in a large glass of water, coffee or tea morning and night until you notice that your stool is softer. I would recommend a full cap full every day that you use narcotics. If you find that your stool is getting too soft/runny than you can decrease the amount of MiraLax that you are using. Please keep your usual dialysis appointment scheduled this afternoon If you have a change to your pain, fevers, new symptoms or other concerns please feel free to return to the emergency room for further evaluation Prescriptions: No Action carvedilol 12.5 mg tablet 12.5 mg PO BID RF: 0 hydralazine 25 mg tablet 25 mg PO BID RF: 0 lisinopril 40 mg tablet 40 mg PO BID RF: 0 sevelamer carbonate 800 mg tablet 1,600 mg PO TID RF: 0 Referrals: Ethan Marie MD [Primary Care Provider] -
[2019-12-12] MEDS: HYDROMORPHONE 1 MG INJ IV (03:47)
[2019-12-12] MEDS: ONDANSETRON 4 MG/2 ML INJ IV (03:52)
[2019-12-12 03:56] LABS: Add Manual Diff / Slide Review NO; Basophils Absolute Auto 100 /uL (0-100); Basophils Percent Auto 0.9 % (0-2); Eosinophils Absolute Auto 200 /uL (0-450); Hematocrit 37.4 % (41-53); Hemoglobin 12.3 g/dL (13.5-17.5); Lymphocytes Absolute Auto 2200 /uL (1100-4500); Lymphocytes Percent Auto 24.2 % (25-40); Mean Corpuscular HGB Conc 32.8 % (30-36); Mean Corpuscular Hemoglobin 29.3 PG (26-34); Mean Corpuscular Volume 89.2 fL (80-100); Monocytes Absolute Auto 1400 /uL (0-900); Monocytes Percent Auto 15.6 % (3-14); Neutrophils Absolute Auto 5300 /uL (1500-7000); Neutrophils Percent Auto 57.3 % (50-75); Platelet Count 187 X10^3/uL (150-400); Red Cell Distribution Width 15.9 % (11.6-14.8); White Blood Cell Count 9.3 X10^3/uL (4.5-11.0)
[2019-12-12 04:00] VITALS: PULSE 72; O2SAT 96
[2019-12-12 04:04] VITALS: BP 201/94; PULSE 73; O2SAT 96
[2019-12-12 04:04] LABS: Alanine Aminotransferase 21 IU/L (<50); Albumin 3.9 g/dL (3.5-5.0); Albumin Globulin Ratio 1.5 (1.0-2.8); Alkaline Phosphatase 74 U/L (38-126); Aspartate Aminotransferase 21 IU/L (17-59); Bilirubin Total 0.6 mg/dL (0.2-1.3); Blood Urea Nitrogen 43 mg/dL (9-20); Calcium 9.4 mg/dL (8.4-10.2); Carbon Dioxide 28 mmol/L (22-32); Chloride 95 mmol/L (98-107); Globulin 2.6 g/dL (1.7-4.1); Glucose 125 mg/dL (70-100); HEMOLYSIS < 15 (0-50); Lipase 424 U/L (23-300); Potassium 4.9 mmol/L (3.4-5.1); Sodium 134 mmol/L (137-145); Total Protein 6.5 g/dL (6.3-8.2)
[2019-12-12 04:13] LABS: Estimated Glomerular Filt Rate 6.4 mL/min (>60)
[2019-12-12 04:30] VITALS: BP 173/89; PULSE 69; O2SAT 94
[2019-12-12] MEDS: OXYCODONE/ACETAMINOPHEN 5/325 TABLET 1 TAB PO (04:45)
[2019-12-12] MEDS: OXYCODONE/APAP 5/325 PREPACK 1 BOTTLE MISC (04:45)
== END 2019-12-12 04:48 | disposition home or self-care (01) ==
PROVIDERS: Emergency Provider Emergency Medicine; PCP Family Medicine
DX: M54.5 Low back pain (principal); R10.32 Left lower quadrant pain; I25.10 Atherosclerotic heart disease of native coronary artery without angina pectoris; I10 Essential (primary) hypertension
CPT/HCPCS: 36415; 74176; 80053; 83690; 85025; 96374; 96375; 99284; J1170; J2405

== ENCOUNTER 2019-12-31 22:25 | Emergency (ER) | payer OTHER, MEDICARE, SELFPAY ==
[2019-12-31 22:36] VITALS: BP 183/91; PULSE 85; RESP 15; TEMP 36.6; O2SAT 98
[2019-12-31 22:50] VITALS: PULSE 78; O2SAT 98
[2019-12-31 23:00] VITALS: BP 167/83; PULSE 77; O2SAT 98
[2019-12-31 23:02] LABS: Add Manual Diff / Slide Review NO; Basophils Absolute Auto 0 /uL (0-100); Basophils Percent Auto 0.5 % (0-2); Eosinophils Absolute Auto 100 /uL (0-450); Eosinophils Percent Auto 1.6 % (2-4); Hematocrit 30.6 % (41-53); Hemoglobin 10.5 g/dL (13.5-17.5); Lymphocytes Absolute Auto 900 /uL (1100-4500); Lymphocytes Percent Auto 9.7 % (25-40); Mean Corpuscular HGB Conc 34.5 % (30-36); Mean Corpuscular Hemoglobin 29.6 PG (26-34); Mean Corpuscular Volume 85.8 fL (80-100); Monocytes Absolute Auto 1100 /uL (0-900); Monocytes Percent Auto 11.7 % (3-14); Neutrophils Absolute Auto 7000 /uL (1500-7000); Neutrophils Percent Auto 76.5 % (50-75); Platelet Count 217 X10^3/uL (150-400); Red Blood Cell Count 3.56 X10^6/uL (4.5-5.9); Red Cell Distribution Width 15.4 % (11.6-14.8); White Blood Cell Count 9.2 X10^3/uL (4.5-11.0)
[2019-12-31 23:07] LABS: INR 1.1 (0.9-1.3); Prothrombin Time 12.5 SECONDS (10.1-12.7)
[2019-12-31 23:10] LABS: PTT Partial Thromboplastin Tim 30 SECONDS (26.4-36.2)
[2019-12-31 23:14] LABS: Alanine Aminotransferase 25 IU/L (<50); Albumin 3.8 g/dL (3.5-5.0); Albumin Globulin Ratio 1.3 (1.0-2.8); Alkaline Phosphatase 126 U/L (38-126); Aspartate Aminotransferase 21 IU/L (17-59); BUN Creatinine Ratio 4.3 (6-22); Bilirubin Total 0.9 mg/dL (0.2-1.3); Blood Urea Nitrogen 22 mg/dL (9-20); Calcium 8.7 mg/dL (8.4-10.2); Carbon Dioxide 31 mmol/L (22-32); Chloride 93 mmol/L (98-107); Estimated Glomerular Filt Rate 11.7 mL/min (>60); Globulin 2.9 g/dL (1.7-4.1); Glucose 131 mg/dL (70-100); HEMOLYSIS < 15 (0-50); Lipase 352 U/L (23-300); Potassium 3.6 mmol/L (3.4-5.1); Sodium 131 mmol/L (137-145); Total Protein 6.7 g/dL (6.3-8.2)
--- NOTE | 2019-12-31 23:30 | DI.CT.S_ITS ---
PROCEDURE: CT ABDOMEN PELVIS WO CON INDICATIONS: Left lower quadrant pain/swelling/possible hernia TECHNIQUE: After the administration of oral contrast, 5 mm thick sections acquired from the diaphragms to the symphysis. 5 mm coronal and sagittal reformats were performed. For radiation dose reduction, the following was used: automated exposure control, adjustment of mA and/or kV according to patient size. COMPARISON: [facility], CT, CT KIDNEY URETER BLADDER (KUB), 12/12/2019, 3:40. FINDINGS: Image quality: Excellent. ABDOMEN: Lung bases: Lung bases are clear. Heart size is normal. Solid organs: Liver is normal in size. Gallbladder appears normal . Pancreas is normal in size. Spleen is normal in size. No adrenal nodules. Both kidneys are normal in size, without hydronephrosis or nephrolithiasis. What appears to be a renal artery small calcification is noted immediately adjacent to the junction of the renal pelvis and right ureter (previously present on CT scanning same position without hydronephrosis or inflammation 12/12/19). Peritoneum and bowel: Bowel loops demonstrate normal wall thickness and caliber. No free fluid or air. Nodes and vessels: No retroperitoneal or mesenteric adenopathy by size criteria. Aorta and inferior vena cava are normal in size. Miscellaneous: No ventral hernias. PELVIS: Genitourinary: Bladder wall thickness is normal. Miscellaneous: No inguinal hernias or adenopathy. Bones: No suspicious bony lesions. No vertebral body compression fractures. IMPRESSION: Source of left-sided lower abdominal/pelvic pain is not identified. Note is again made of a small 3 mm calcification at the expected position of the right renal artery immediately adjacent to the course of the right renal pelvis/ureter junction. This calcification was present earlier on CT KUB, 12/12/19, and is not associated with inflammation or evidence of urinary tract obstruction. Dictated by: Austin Pritchett M.D. on 01/01/2020 at 8:11 Approved by: Austin Pritchett M.D. on 01/01/2020 at 8:16
--- NOTE | 2019-12-31 23:43 | ED.ABDPAIN ---
HPI - Abdominal Pain General Chief Complaint: Abdominal Pain Stated Complaint: lower abd and groin pain Time Seen by Provider: 12/31/19 23:11 Source: patient and family Mode of arrival: Ambulatory Limitations: no limitations History of Present Illness HPI narrative: Patient here with . Complains of left lower quadrant pain/distension that he noticed today. More obvious this evening during dialysis. No prior history of hernia. No nausea vomiting diarrhea no urinary complaints. Pain radiates to the left groin. Patient seen here 19 days ago for flank pain and thought more related to his back. Has been seeing a chiropractor and that pain at that time has improved. This is different patient states. Patient currently being worked up for possible renal transplant Related Data Home Medications Medication Instructions Recorded Confirmed carvedilol 12.5 mg PO BID 12/30/18 12/30/18 hydralazine 25 mg PO BID 12/30/18 12/30/18 lisinopril 40 mg PO BID 12/30/18 12/30/18 sevelamer carbonate 1,600 mg PO TID 12/30/18 12/30/18 Allergies Allergy/AdvReac Type Severity Reaction Status Date / Time No Known Drug Allergies Allergy Verified 12/12/19 04:17 Review of Systems Review of Systems Narrative: GENERAL: Denies chills, fatigue, malaise, fever, sweats. HEENT: Denies sinus pain, ear pain, sore throat, difficulty swallowing, dizziness. RESPIRATORY: Denies dyspnea, cough, wheezing, hemoptysis, sputum. CARDIOVASCULAR: Denies chest pain, palpitations, orthopnea, edema, GASTROINTESTINAL: Denies nausea, vomiting, complains abdominal pain, denies diarrhea, constipation, melena. : Denies dysuria, frequency, incontinence, hematuria, urinary retention. MUSCULOSKELETAL: denies weakness, joint pain, or bony pain SKIN: Denies rash, skin lesions, or other NEUROLOGIC: Denies weakness, headache, numbness, change in speech, confusion, seizures, incoordination. PSYCHIATRIC: No concerning psychosocial issues. ROS Unobtainable: All systems reviewed & are unremarkable except as noted in HPI and below Patient History Medical History Diabetes (Acute) End stage renal disease on dialysis (Acute) HTN (hypertension) (Acute) Presence of arterial-venous shunt (for dialysis) (Acute) Social History Smoking Status: Never smoker Smoking Status: Never smoker alcohol intake frequency: a few times a month Substance Use Type: does not use Exam Narrative Exam Narrative: GENERAL: patient appears stated age. Well-nourished, well-developed patient, in no distress, not toxic HEAD: Atraumatic. Normocephalic. EYES: Pupils equal round and reactive. Extraocular motions intact. No scleral icterus. No injection or drainage. ENT: Nose without bleeding, purulent drainage. Throat without erythema, tonsillar hypertrophy or exudate. Airway patent. NECK: Trachea midline. Non tender CARDIOVASCULAR: Regular rate and rhythm without murmurs, gallops, or rubs. RESPIRATORY: Clear to auscultation. Breath sounds equal bilaterally. No wheezes, rales, or rhonchi. GASTROINTESTINAL: Abdomen soft, palpable possible left lower quadrant ventral abdominal wall hernia on Valsalva. Stood patient up and no palpable inguinal hernia or scrotal hernia on insertion of finger into the scrotum. EXTREMITIES: No edema or joint tenderness. BACK: Nontender without deformity or crepitance. No flank tenderness. NEURO: AOx4 SKIN: No rash or erythema of visible areas PSYCH: Not anxious, is cooperative Initial Vital Signs Initial Vital Signs: Vital Signs Temperature 97.9 F 12/31/19 22:36 Pulse Rate 85 12/31/19 22:36 Respiratory Rate 15 12/31/19 22:36 Blood Pressure 183/91 H 12/31/19 22:36 Pulse Oximetry 98 12/31/19 22:36 Course Orders Ordered: ED Orders 12/31/19 22:48 Complete Blood Count AUTO DIFF Stat Comprehensive Metabolic Panel Stat Lipase Stat Partial Thromboplastin Time Stat Prothrombin Time INR Stat 12/31/19 22:53 EKG-12 Lead Stat 12/31/19 23:30 CT abdomen pelvis wo con Stat Reevaluation(s) Reevaluation #1: Spoke with patient and results of the CT scan. At this time no visible hernia. However could be straining of the muscles due to chronic cough. Patient is scheduled to get EGD with gastroenterology for possible acid reflux causing his chronic cough. This can induce strain on the abdominal muscles Time: 00:50 Vital Signs Vital signs: Vital Signs - 8 hr 12/31/19 22:36 12/31/19 22:50 12/31/19 23:00 Temperature 97.9 F Pulse Rate 85 78 77 Respiratory Rate 15 Blood Pressure 183/91 H 167/83 H Pulse Oximetry 98 98 98 12/31/19 23:49 01/01/20 00:00 01/01/20 00:30 Temperature Pulse Rate 78 78 81 Respiratory Rate Blood Pressure 169/88 H 174/94 H Pulse Oximetry 99 100 99 01/01/20 01:00 Temperature Pulse Rate 80 Respiratory Rate Blood Pressure 174/95 H Pulse Oximetry 99 MDM - Abdominal Pain Differential Diagnosis Differential diagnosis: Likely abdominal pain, constipation, small bowel obstruction and other (Ventral wall hernia) Medical Records Attestation: I reviewed the patient's medical records. Lab Data Attestation: I reviewed the patient's lab results. Result diagrams: 12/31/19 22:48 12/31/19 22:48 Labs: Lab Results 12/31/19 12/31/19 12/31/19 Range/Units 22:48 22:48 22:48 WBC 9.2 (4.5-11.0) X10^3/uL RBC 3.56 L (4.5-5.9) X10^6/uL Hgb 10.5 L (13.5-17.5) g/dL Hct 30.6 L (41-53) % MCV 85.8 (80-100) fL MCH 29.6 (26-34) PG MCHC 34.5 (30-36) % RDW 15.4 H (11.6-14.8) % Plt Count 217 (150-400) X10^3/uL Neut % (Auto) 76.5 H (50-75) % Lymph % (Auto) 9.7 L (25-40) % [place] % (Auto) 11.7 (3-14) % Eos % (Auto) 1.6 L (2-4) % Baso % (Auto) 0.5 (0-2) % Neut # (Auto) 7000 (7006-2520) /uL Lymph # (Auto) 900 L (2917-4084) /uL [place] # (Auto) 1100 H (0-900) /uL Eos # (Auto) 100 (0-450) /uL Baso # (Auto) 0 (0-100) /uL PT 12.5 (10.1-12.7) SECONDS INR 1.1 (0.9-1.3) APTT 30 (26.4-36.2) SECONDS Sodium 131 L (137-145) mmol/L Potassium 3.6 (3.4-5.1) mmol/L Chloride 93 L (98-107) mmol/L Carbon Dioxide 31 (22-32) mmol/L BUN 22 H (9-20) mg/dL Creatinine 5.12 H (0.66-1.25) mg/dL Estimated GFR 11.7 L (>60) mL/min BUN/Creatinine Ratio 4.3 L (6-22) Glucose 131 H (70-100) mg/dL Calcium 8.7 (8.4-10.2) mg/dL Total Bilirubin 0.9 (0.2-1.3) mg/dL AST 21 (17-59) IU/L ALT 25 (<50) IU/L Alkaline Phosphatase 126 (38-126) U/L Total Protein 6.7 (6.3-8.2) g/dL Albumin 3.8 (3.5-5.0) g/dL Globulin 2.9 (1.7-4.1) g/dL Albumin/Globulin Ratio 1.3 (1.0-2.8) Lipase 352 H (23-300) U/L Imaging Data CT scan - abdomen/pelvis: Radiologist's Impression: No visible hernia. No abdominal aortic aneurysm. No acute findings. ECG Data Attestation: I personally reviewed and interpreted this ECG as follows: Interpretation: Sinus rhythm, rate 77, left axis deviation. No ST elevation or depression. MDM Narrative Medical decision making narrative: Spoke with patient results. Will give referral to General surgery. Patient already is being worked up by Gastroenterology for possible EGD for chronic cough/acid reflux Discharge Plan Departure Patient Disposition: Home Clinical Impression: Abdominal wall pain Discharge Date/Time: 01/01/20 01:13 Instructions: DI for Abdominal Muscle Strain Activity Restrictions/Additional Instructions: Return if worse. See family doctor for recheck. May call provided surgery office tomorrow for evaluation of abdominal wall pain. Return if any questions or concerns Prescriptions: No Action carvedilol 12.5 mg tablet 12.5 mg PO BID RF: 0 hydralazine 25 mg tablet 25 mg PO BID RF: 0 lisinopril 40 mg tablet 40 mg PO BID RF: 0 sevelamer carbonate 800 mg tablet 1,600 mg PO TID RF: 0 Referrals: Tom Barrera MD [Primary Care Provider] - Yong Cortes MD [Physician] -
[2019-12-31 23:49] VITALS: BP 169/88; PULSE 78; O2SAT 99
[2020-01-01] VITALS: BP 174/94; PULSE 78; O2SAT 100
[2020-01-01 00:30] VITALS: PULSE 81; O2SAT 99
[2020-01-01 01:00] VITALS: BP 174/95; PULSE 80; O2SAT 99
== END 2020-01-01 01:13 | disposition home or self-care (01) ==
PROVIDERS: Emergency Provider Emergency Medicine; PCP Internal Medicine Nephrology
DX: R10.32 Left lower quadrant pain (principal); E11.22 Type 2 diabetes mellitus with diabetic chronic kidney disease; I12.0 Hypertensive chronic kidney disease with stage 5 chronic kidney disease or end stage renal disease; Z99.2 Dependence on renal dialysis
CPT/HCPCS: 36415; 74176; 80053; 83690; 85025; 85610; 85730; 93005; 99284; 99285

== ENCOUNTER → 2020-01-29 09:01 | Outpatient (CLI) | payer OTHER, MEDICARE, SELFPAY ==
--- NOTE | 2020-01-29 | DI.CT.S_ITS ---
PROCEDURE: CT CHEST WO CON INDICATIONS: COUGH TECHNIQUE: Noncontrast 5 mm thick sections acquired from the pulmonary apices to the posterior costophrenic angles. 1 mm lung window, 5 mm thick coronal and sagittal and 7 mm axial MIP reformats were then acquired. For radiation dose reduction, the following was used: automated exposure control, adjustment of mA and/or kV according to patient size. COMPARISON: None. FINDINGS: Image quality: Excellent. Lungs and pleura: 4 mm pleural-based nodule, left lower lobe, image 211/3. 4 mm pleural based pulmonary nodule, left lower lobe, image 239/3. 3 mm pleural based pulmonary nodule, left lower lobe, image 247/3. 3 mm pleural based pulmonary nodule, right middle lobe, image 187/3. No acute air space opacities. No pleural effusions or pneumothorax. Mild bronchial wall thickening and bronchiectasis right upper lobe and right middle lobe. Mild bronchial wall thickening and bronchiectasis, left lingula and left lower lobe. Mediastinum: Heart size is normal. No pericardial effusion. Coronary artery calcifications. Question LAD stent. No mediastinal adenopathy by size criteria. Shotty mediastinal lymph nodes, likely inflammatory in nature. Thoracic aorta and central pulmonary arteries are normal in size. Esophagus is normal in caliber. No hiatal hernia. Bones and chest wall: No suspicious bony lesions. No vertebral body compression fractures. No axillary or supraclavicular adenopathy by size criteria. Thyroid gland is unremarkable as visualized. Abdomen: Visualized upper abdominal solid organs and bowel loops appear normal in the absence of contrast. IMPRESSION: 1. Mild bilateral bronchiectasis and bronchial wall thickening. 2. Coronary artery disease. 3. Bilateral small, nonspecific pleural based pulmonary nodules. Please refer to chart below for follow-up recommendations. Fleischner Society criteria for SOLID lung nodule followup. Nodule size (mm)Low-risk patientHigh-risk patient<6 (single or multiple)No routine followup.Optional CT at 12 months. 6-8 (single or multiple)CT at 6-12 months, then optional CT at 18-24 mo.CT at 6-12 months, then CT at 18-24 months. >8 (single)CT at 3 months, PET-CT, or biopsy. Same as for low-risk pts. >8 (multiple)CT at 3-6 months, then optional CT at 18-24 mo.CT at 3-6 months, then CT at 18-24 months. Fleischner Society criteria for SUB-SOLID lung nodule followup. Solitary pure ground-glass nodules<6 mm (ground glass or part solid)No followup needed. 6 mm or larger (ground glass)CT at 6-12 months to confirm persistence, then CT every 2 years until 5 years.6 mm or larger (part solid)CT at 3-6 months to confirm persistence, then annual CT until 5 years if unchanged and solid component remains <6 mm. Multiple sub-solid nodules<6 mmCT at 3-6 months, then CT consider at 2 & 4 years for high risk patients. [address] at 3-6 months. Subsequent management based on most suspicious lesions. Recommendations do not apply to lung cancer screening, patients with immunosuppression, or patients with known primary cancer. Dictated by: Ector Polo M.D. on 01/29/2020 at 10:27 Approved by: Ector Polo M.D. on 01/29/2020 at 10:33
== END ==
PROVIDERS: PCP Internal Medicine Nephrology; Referring Provider Internal Medicine Nephrology; Visit Provider Internal Medicine Nephrology
DX: R05 Cough (principal); I25.10 Atherosclerotic heart disease of native coronary artery without angina pectoris; R91.8 Other nonspecific abnormal finding of lung field; J47.9 Bronchiectasis, uncomplicated
CPT/HCPCS: 71250

== ENCOUNTER → 2020-04-12 08:31 | Outpatient (CLI) | payer OTHER, MEDICARE, SELFPAY ==
--- NOTE | 2020-04-12 | DI.NM.S_ITS ---
PROCEDURE: NM GASTRIC EMPTYING STUDY RADIOPHARMACEUTICAL: 1.0 mCi Tc-99m sulfur colloid in an egg sandwich. INDICATIONS: Early satiety,Nausea with vomiting, unspecified TECHNIQUE: A Tc-99m labeled sulfur colloid labeled egg sandwich or oatmeal was served to the patient. Anterior and posterior planar images of the abdomen were obtained at 0 minutes and 30 minutes, then at hourly intervals up to 4 hours. The patient was upright and ambulating during the interval. COMPARISON: None. FINDINGS: The stomach has normal size, morphology, and position. There is normal emptying of solid gastric contents from the stomach by visual inspection. No gastroesophageal reflux is visualized. The percentage of tracer retained at specific time points are as follows: Time point Percent gastric retention Normal range 30 minutes 80 70% or more 1 hour 57 30% to 90% 2 hours 7 60% or less IMPRESSION: Normal gastric emptying. Dictated by: Angie Lenz M.D. on 04/12/2020 at 12:28 Approved by: Angie Lenz M.D. on 04/12/2020 at 12:29
== END ==
PROVIDERS: PCP Internal Medicine Nephrology; Referring Provider Internal Medicine Nephrology; Visit Provider Internal Medicine Gastroenterology
DX: R11.2 Nausea with vomiting, unspecified (principal); R68.81 Early satiety
CPT/HCPCS: 78264; A9541

== ENCOUNTER → 2020-09-22 11:11 | Outpatient (CLI) | payer OTHER, MEDICARE, SELFPAY ==
[2020-09-22 12:45] LABS: Hemoglobin A1C% w Est Avg Glu 6.6 % (4.0-6.0)
[2020-09-22 13:07] LABS: Prostate Specific Antigen Scrn 1.09 ng/mL (0.1-4.0)
== END ==
PROVIDERS: PCP Student in an Organized Health Care Education/Training Program; Referring Provider Student in an Organized Health Care Education/Training Program; Visit Provider Student in an Organized Health Care Education/Training Program
DX: Z12.5 Encounter for screening for malignant neoplasm of prostate (principal); E11.9 Type 2 diabetes mellitus without complications
CPT/HCPCS: 36415; 83036; G0103

== ENCOUNTER → 2020-12-23 11:18 | Outpatient (CLI) | payer OTHER, MEDICARE, SELFPAY ==
--- NOTE | 2020-12-23 11:23 | DI.ECHO.S_ITS ---
[facility]+ : : [address] : [address] : : : : [id number] : : : : Phone: [phone]+ Echocardiogram Report + + :Name: VIKI CALVERT Study Date: 12/23/2020 Height: 75 in : :[facility] ReadingLocation: Weight: 225 lb : : Gender: Male BSA: 2.3 m2 : :: 1965 Age: 55 yrs BP: 127/76 mmHg: :Reason For Study: ESRD : :Ordering Physician: KODAK, : :RAMÓN Performed By: Antonio Duarte : :Referring: RAMÓN CANDELARIO : + + Interpretation Summary The left ventricle is normal in size. There is moderate concentric left ventricular hypertrophy. The ejection fraction is estimated to be 55-60%. Diastolic parameters suggest a pseudonormalization pattern, consistent with probable elevated filling pressures. The right ventricle is normal in size and function. There is severe mitral annular calcification. No significant mitral valve stenosis. There is moderate mitral regurgitation. The aortic valve is moderately calcified. There is moderately reduced leaflet mobility. The calculated aortic valve area is 1.37 cm2. There is mild to moderate aortic stenosis. There is mild to moderate tricuspid regurgitation. The right ventricular systolic pressure is estimated to be at least 43 mmHg based on an estimated right atrial pressure of 3 mm Hg. The ascending aorta is mildly enlarged. Moderate atherosclerotic plaque(s) in the aortic arch. Procedure: A two-dimensional transthoracic echocardiogram with color flow and Doppler was performed. The study quality was technically adequate. There is no prior echocardiogram noted for this patient. The patient was in sinus rhythm with heart rates between 53-63 bpm during the exam. Left Ventricle: The left ventricle is normal in size. There is moderate concentric left ventricular hypertrophy. There is no thrombus. Left ventricular systolic function is normal. The ejection fraction is estimated to be 55-60%. There are no focal wall motion abnormalities. Diastolic parameters suggest a pseudonormalization pattern, consistent with probable elevated filling pressures. Right Ventricle: The right ventricle is normal in size and function. Atria: The left atrium is mildly dilated. The right atrium is normal in size. There is no Doppler evidence for an interatrial shunt. Mitral Valve: There is severe mitral annular calcification. No significant mitral valve stenosis. There is moderate mitral regurgitation. Aortic Valve: The aortic valve is moderately calcified. There is moderately reduced leaflet mobility. The aortic valve mean gradient is 15 mmHg. The peak aortic velocity is 2.58 m/sec. The calculated aortic valve area is 1.37 cm2. There is mild to moderate aortic stenosis. There is trace aortic regurgitation. Tricuspid Valve: The tricuspid valve is normal. There is mild to moderate tricuspid regurgitation. The right ventricular systolic pressure is estimated to be at least 43 mmHg based on an estimated right atrial pressure of 3 mm Hg. Pulmonic Valve: The pulmonic valve is not well visualized. There is no pulmonic valvular regurgitation. Great Vessels: The aortic root is normal size. The ascending aorta is mildly enlarged. Moderate atherosclerotic plaque(s) in the aortic arch. The IVC is of normal diameter and collapses greater than 50% with a sniff. This suggests a low right atrial pressure of 3 mm Hg. Pericardium/ Pleura There is no pericardial effusion. There is no pleural effusion. MMode/2D Measurements & Calculations LVIDd: 5.6 cm LVOT diam: 2.3 cm LVIDs: 3.9 cm Ao root diam: 3.4 cm FS: 30.4 % asc Aorta Diam: 4.1 cm IVSd: 1.4 cm LVPWd: 1.4 cm LV covarrubias. diameter/BSA (cm/m^2): 2.4 LV sys. diameter/BSA (cm/m^2): 1.7 LA dimension: 4.0 cm RA long axis: 5.1 cm LA A2 area: 22.2 cm2 IVC diam: 1.9 cm LA A4 area: 26.7 cm2 LA length (vol): 5.6 cm LA vol: 89.5 ml LA vol index: 38.8 ml/m2 TAPSE_phl: 2.2 cm Doppler Measurements & Calculations Ao V2 max: 258.0 cm/sec LVOT Max Blaze: 96.6 cm/sec Ao V2 mean: 186.0 cm/sec LV V1 max P.7 mmHg Ao max P.0 mmHg LV V1 VTI: 23.7 cm Ao mean P.0 mmHg EARNESTINE(I,D): 1.6 cm2 Ao V2 VTI: 59.8 cm EARNESTINE(V,D): 1.5 cm2 sev ratio: 0.40 EARNESTINE indexed to BSA (cm^2/m^2): 0.71 MV E max blaze: 158.0 cm/sec TR max blaze: 317.0 cm/sec MV A max blaze: 105.0 cm/sec TR max P.2 mmHg MV E/A: 1.5 PA V2 max: 93.3 cm/sec Med Peak E' Blaze: 6.6 cm/sec PA V2 mean: 61.4 cm/sec E/E' med: 24.0 PA mean P.0 mmHg Lat Peak E' Blaze: 5.7 cm/sec PA pr(Accel): 50.6 mmHg E/E' lat: 27.7 E/e' average: 25.8 MV dec time: 0.22 sec MR PISA: 1.3 cm2 SV(LVOT): 97.7 ml MR PISA radius: 0.45 cm AV VR_phl: 0.37 MV P1/2t-pr_phl: 64.0 msec EARNESTINE(VTI)/BSA_phl: 0.59 Reading Physician:03:02 PM
--- NOTE | 2020-12-23 11:23 | DI.US.S_ITS ---
PROCEDURE: US RENAL COMPLETE INDICATIONS: END STAGE RENAL FAILURE; LEFT RENAL LESION TECHNIQUE: Real-time scanning was performed of the kidneys and bladder, with image documentation. COMPARISON: [facility], CT, CT ABDOMEN PELVIS WO CON, 12/31/2019, 23:32. FINDINGS: Kidneys: Kidneys are normal in size. Right kidney measures 11.7 cm long; left kidney measures 10.6 cm long. Right renal cortical thickness is 1.2 cm; left renal cortical thickness is 1.2 cm. Renal cortical echotexture is normal. No hydronephrosis or nephrolithiasis. No suspicious solid mass lesions. Bladder: The bladder is nondistended, which compromises evaluation. Miscellaneous: No free pelvic fluid. IMPRESSION: No hydronephrosis or nephrolithiasis. No significant abnormality identified sonographically. Dictated by: Jaylen Aguero M.D. on 12/23/2020 at 15:47 Approved by: Jaylen Aguero M.D. on 12/23/2020 at 15:52
--- NOTE | 2020-12-23 11:23 | DI.RAD.S_ITS ---
PROCEDURE: XR CHEST 2V INDICATIONS: Pre transplant clearance TECHNIQUE: 2 views of the chest were acquired. COMPARISON: [facility], CT, CT CHEST WO CON, 01/29/2020, 9:12. [facility], CR, XR CHEST 2V, 12/30/2018, 8:01. FINDINGS: Surgical changes and devices: None. Lungs and pleura: Lungs are clear. No pleural effusions or pneumothorax. Mediastinum: Mediastinal contours are normal. Heart size is upper limits of normal. Bones and chest wall: No suspicious bony abnormalities. Soft tissues appear unremarkable. Degenerative changes are seen in the included spine. IMPRESSION: No acute cardiopulmonary abnormality. Dictated by: Jaylen Aguero M.D. on 12/23/2020 at 12:08 Approved by: Jaylen Aguero M.D. on 12/23/2020 at 12:10
== END ==
PROVIDERS: PCP Student in an Organized Health Care Education/Training Program; Referring Provider Student in an Organized Health Care Education/Training Program; Visit Provider Student in an Organized Health Care Education/Training Program
DX: Z01.818 Encounter for other preprocedural examination (principal); N18.6 End stage renal disease; N28.89 Other specified disorders of kidney and ureter; I08.3 Combined rheumatic disorders of mitral, aortic and tricuspid valves; I70.0 Atherosclerosis of aorta; I77.89 Other specified disorders of arteries and arterioles; Z99.2 Dependence on renal dialysis; Z95.5 Presence of coronary angioplasty implant and graft
CPT/HCPCS: 71046; 76770; 93306

== ENCOUNTER 2021-01-13 10:13 | Emergency (ER) | payer OTHER, MEDICARE, SELFPAY ==
[2021-01-13] VITALS (35 sets, daily range): BP systolic 153–197; BP diastolic 69–91; PULSE 39–47; RESP 12–33; TEMP 36.8; O2SAT 95–100; BMI 27.7
--- NOTE | 2021-01-13 10:26 | DI.RAD.S_ITS ---
PROCEDURE: XR CHEST 1V INDICATIONS: Possible stroke TECHNIQUE: One view of the chest was acquired. COMPARISON: [facility], CT, CT ANGIO HEAD AND NECK, 01/13/2021, 10:32. [facility], CT, CT STROKE, 01/13/2021, 10:32. [facility], CR, XR CHEST 2V, 12/23/2020, 11:29. FINDINGS: Surgical changes and devices: None. Lungs and pleura: An incomplete inspiratory result is noted, causing a crowded appearance to the lung markings. No focal infiltrates are seen. No pneumothorax or significant pleural effusions are seen. Mediastinum: Mediastinal contours appear normal. Heart size is normal. Bones and chest wall: No suspicious bony lesions. Overlying soft tissues appear unremarkable. IMPRESSION: Limited portable chest examination, without a significant cardiopulmonary abnormality identified. Dictated by: Armando Atkins M.D. on 01/13/2021 at 10:00 Approved by: Armando Atkins M.D. on 01/13/2021 at 10:00
--- NOTE | 2021-01-13 10:26 | DI.CT.S_ITS ---
PROCEDURE: CT STROKE INDICATIONS: left side numbness TECHNIQUE: Noncontrast 4.5 mm thick angled axial sections acquired from the foramen magnum to the vertex, with coronal reformats. For radiation dose reduction, the following was used: automated exposure control, adjustment of mA and/or kV according to patient size. COMPARISON: None. FINDINGS: Image quality: Excellent. CSF spaces: Basal cisterns are patent. No extra-axial fluid collections. The ventricles are symmetric in size and shape. Brain: No intracranial bleeds or masses. There is cerebral volume loss for age, with resultant ventricular and sulcal prominence. There are periventricular and deep white matter chronic small vessel ischemic changes. There is intracranial internal carotid artery and vertebral artery atherosclerosis. Skull and face: Calvarium and visualized facial bones appear intact, without suspicious lesions. Sinuses: Visualized sinuses and mastoids are clear. IMPRESSION: 1. No acute intracranial disease process. 2. Findings telephoned to Dr. Barry on January 13, 2021 at 10:50 a.m.. This study fulfills neurological imaging criteria for inclusion or exclusion of acute stroke therapies based on available published neurological guidelines. Dictated by: Jessy Vega MD, PhD on 01/13/2021 at 10:49 Approved by: Jessy Vega MD, PhD on 01/13/2021 at 10:51
--- NOTE | 2021-01-13 10:32 | DI.CT.S_ITS ---
PROCEDURE: CT ANGIO HEAD AND NECK INDICATIONS: eval for LVO L sided numbness TECHNIQUE: Noncontrast images were performed earlier in the day and not repeated. After the administration of intravenous contrast, 1 mm thick sections acquired from the aortic arch through the [place] of [place]. Post-contrast 4.5 mm thick sections then re-acquired from the foramen magnum to the vertex. 3-dimensional fpnydwm-aigvsoyyi-jbluecbyry (MIP) and/or volume rendering reformats were acquired of the central intracranial vasculature and neck separately. COMPARISON: [facility], MR, BRAIN (IAC) W AND WO CONTRAST, 07/07/2008, 8:33. [facility], CR, XR CHEST 1V, 01/13/2021, 10:30. [facility], CT, CT STROKE, 01/13/2021, 10:32. FINDINGS: Image quality: Excellent. BRAIN: CSF spaces: Ventricles are normal in size and shape. Basal cisterns are patent. No extra-axial fluid collections. Brain: No midline shift. No intracranial bleeds or masses. Bell-white matter interface appears intact. Skull and face: Calvarium and facial bones appear intact, without suspicious lesions. Orbits appear normal. Sinuses: Sinuses and mastoids are clear. HEAD CT ANGIOGRAPHY: Anterior circulation: Intracranial internal carotid arteries demonstrate generalized atherosclerotic calcification and irregularity, with approximately 60% narrowing on the right and approximately 40% narrowing on the left. There is a diminutive right A1 segment, with a corresponding robust left A1 segment. This is considered to be a normal developmental variant of the [place] of [place], of typically no clinical consequence. The flow within the paired anterior cerebral arteries is otherwise normal and symmetric. The flow within the middle cerebral arteries is normal and symmetric. The anterior communicating artery is seen. No aneurysms are seen. Posterior circulation: The right V4 segment demonstrates an approximately 50% narrowing within its midportion, yet otherwise appears normal. There is decreased flow seen within the left V4 segment. There is a normal appearing basilar artery. There is a prominent right posterior communicating artery seen, with an accompanying diminutive right P1 segment. This is attributed to a type origin of the right posterior cerebral artery, which is considered to be a normal developmental variant of typically no clinical consequence. Flow within the posterior cerebral arteries is normal and symmetric. No aneurysms are seen. NECK CT ANGIOGRAPHY: Carotid system: The great vessels demonstrate a conventional anatomy as they arise from the aortic arch. The origins of the common carotid arteries appear patent. The common carotid arteries demonstrate normal caliber and courses. The bifurcation regions demonstrate atherosclerotic irregularity and calcification, with 60-70% narrowing on the right and approximately 80% narrowing on the left. The internal carotid arteries demonstrate normal calibers and courses. Posterior circulation: The left vertebral artery is occluded at its origin. The left vertebral artery demonstrates partial reconstitution at its V4 level. The right vertebral artery demonstrates 30-40% narrowing at its origin. The more distal right vertebral artery is unremarkable. Soft tissues: Visualized neck soft tissues demonstrate no suspicious abnormalities. Advanced coronary artery calcification can be seen. Bones: No suspicious bony lesions. Visualized cervical spine appears normally aligned. Mild to moderate cervical spine degenerative changes are seen. 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 Focal atherosclerotic calcification and narrowing seen of the proximal internal carotid arteries, with approximately 80% narrowing on the left and 60-70% narrowing on the right. No significant brain abnormality is detected by CT. If clinically appropriate, please consider a follow-up brain MRI. Incidental note is made of: Prominent coronary artery calcification Mnedxm-cy-Ewazst developmental anomalies Any quantitative measurements of stenosis were performed using NASCET criteria. Dictated by: Armando Atkins M.D. on 01/13/2021 at 10:02 Approved by: Armando Atkins M.D. on 01/13/2021 at 10:09
--- NOTE | 2021-01-13 10:35 | ED.GENADULT ---
HPI - General Adult General Chief complaint: Neuro Symptoms/Deficit Stated complaint: Left side numbness Time Seen by Provider: 01/13/21 10:31 Source: patient and family Mode of arrival: Ambulatory History of Present Illness HPI narrative: Patient is a 55-year-old male. History of end-stage renal disease on dialysis. Gets his dialysis performed on Sunday and Sunday. Had a full dialysis treatment yesterday. This was a regularly scheduled treatment. After dialysis he frequently has issues to include cramping and problems sleeping and tingling and neuropathy. This caused him to have some problems sleeping last night. This is not unusual for him especially after having dialysis treatment. He was finally able to get to sleep at approximately 0530 this morning. This is his last known normal. His alarm went off 1 hour later and during that time woke up with numbness and tingling on his left side. He states that it starts at the top of his head and is isolated to his left-sided goes all the way down to his feet. He arrived here in the emergency department approximately 4 hours after the onset of the symptoms. He denies any other associated symptoms. No chest pain. Does have ringing in his ears but that is not new. No shortness of breath. No muscular weakness. No vision changes. Has not tried anything for his symptoms. He is taking all his medications as directed. He is being followed by the [facility] for potential kidney transplant. Related Data Home Medications Medication Instructions Recorded Confirmed sevelamer carbonate 800 mg tablet 1,600 mg PO TID 12/30/18 01/13/21 aspirin 81 mg tablet,delayed 81 mg PO DAILY 09/22/20 01/13/21 release atorvastatin 40 mg tablet 40 mg PO DAILY 09/22/20 01/13/21 carvedilol 25 mg tablet 25 mg PO BID 09/22/20 01/13/21 furosemide 80 mg tablet 80 mg PO DAILY 09/22/20 01/13/21 hydralazine 25 mg tablet 50 mg PO BID tab 09/22/20 01/13/21 losartan 100 mg tablet 100 mg PO DAILY 09/22/20 01/13/21 pantoprazole 40 mg tablet,delayed 40 mg PO DAILY 09/22/20 01/13/21 release Previous Rx's Medication Instructions Recorded gabapentin 100 mg capsule 100 mg PO BEDTIME #90 cap 01/11/21 Allergies Allergy/AdvReac Type Severity Reaction Status Date / Time No Known Drug Allergies Allergy Verified 01/13/21 10:39 Review of Systems Constitutional Constitutional: Denies fever(s) and Denies headache(s) Eyes Eyes: Reports system reviewed and no additional complaints, except as documented ENT Ears, Nose, Mouth, and Throat: Reports system reviewed and no additional complaints, except as documented, Reports as per HPI and Denies headache(s) Cardiovascular Cardiovascular: Reports system reviewed and no additional complaints, except as documented Respiratory Respiratory: Reports system reviewed and no additional complaints, except as documented Gastrointestinal Gastrointestinal: Reports system reviewed and no additional complaints, except as documented Genitourinary Genitourinary: Reports system reviewed and no additional complaints, except as documented Musculoskeletal Musculoskeletal: Reports system reviewed and no additional complaints, except as documented Integumentary/Breasts Skin/Breast: Reports system reviewed and no additional complaints, except as documented Neurologic Neurologic: Reports as per HPI and Denies headache(s) Psychiatric Psychiatric: Reports system reviewed and no additional complaints, except as documented Hematologic/Lymphatic On Anticoagulants: No Allergic/Immunologic Allergic/Immunologic: Reports system reviewed and no additional complaints, except as documented Patient History Medical History Chronic back pain (~1989) Coronary artery disease End stage renal disease on dialysis Essential hypertension Foot pain (~2010) History of hemodialysis (~2018) Hyperlipidemia associated with type 2 diabetes mellitus Kidney disease (~2018) Kidney failure (~2018) Presence of arterial-venous shunt (for dialysis) Shingles rash Tinnitus Type 2 diabetes mellitus Wears glasses Surgical History Anesthesia Fistula (~07/2018) History of repair of rotator cuff (~09/2016) S/P CABG x 2 (~2018) Family History Father Hypertension Hyperlipidemia Mother Diabetes mellitus History of heart disease Hypertension Hyperlipidemia Stroke Sister Hyperlipidemia Hypertension Sister Cancer Grandfather Cancer Grandmother Liver disease Grandfather Stroke Grandmother History of heart disease Social History Smoking Status: Never smoker Smoking Status: Never smoker alcohol intake frequency: a few times a month Substance Use Type: does not use Exam Initial Vital Signs Initial Vital Signs: Vital Signs Temperature 98.2 F 01/13/21 10:15 Pulse Rate 42 L 01/13/21 10:15 Respiratory Rate 17 01/13/21 10:15 Blood Pressure 195/81 H 01/13/21 10:15 Pulse Oximetry 100 01/13/21 10:15 Const General: cooperative, healthy appearing and comfortable HENMT Head: normal to inspection and normocephalic Eyes General: appearance normal, both eyes and all related structures Resp Effort & Inspection: normal respiratory effort Auscultation: clear to auscultation bilaterally Cardio Rate: regular rate Rhythm: regular rhythm GI Inspection: normal to inspection Palpation: soft Back/Spine/Pelvis Back: normal to inspection Skin General: no rashes or lesions noted Lesions: no lesions Neuro General: patient alert, patient awake, patient oriented x3 and moves all extremities Cognition: normal cognition Speech: speech normal Motor: muscle tone normal throughout Sensory Exam: other (Decreased sensation left side to light touch) Extrem General: normal to inspection and capillary refill normal Psych Appearance: grossly normal and well kempt Scores GCS [place] coma scale eye opening: Spontaneous [place] coma scale verbal response: Orientated Asha coma scale motor response: Obey commands Asha coma scale total score: 15 NIH Stroke Scale Level of Conciousness: Alert, keenly responsive Ask month/age: Answers both questions correctly. Open/close eyes, close hand: Performs both tasks correctly Best gaze horizontal: Normal Visual hurt: No visual loss Facial palsy: Normal symetrical movement Left arm drift: No drift for full 10 sec Right arm drift: No drift for full 10 sec Left leg drift: No drift for full 5 sec Right leg drift: No drift for full 5 sec Limb ataxia: Absent Sensory on face/arms/legs: Mild to moderate sensory loss, can tell touch Best language: No aphasia, normal Dysarthria: Normal Extinction or inattention: No abnormality Total NIH Stroke scale score: 1 Course Orders Ordered: ED Orders 01/13/21 10:26 CT Stroke Stat XR chest 1V Stat EKG-12 Lead Stat 01/13/21 10:30 Complete Blood Count AUTO DIFF Stat Comprehensive Metabolic Panel Stat Partial Thromboplastin Time Stat Prothrombin Time INR Stat Troponin & CK Cardiac Panel Stat 01/13/21 10:32 CT angio head and neck Stat 01/13/21 12:57 MR head/brain wo con Stat 01/13/21 16:40 COVID19 -Nasal swab/Pre-Proc Stat Discontinued Medications Acetaminophen (Acetaminophen 325 Mg Tablet) 650 mg PO NOW ONE Stop: 01/13/21 19:21 Clopidogrel Bisulfate (Clopidogrel 75 Mg Tablet) 300 mg PO NOW ONE Stop: 01/13/21 17:39 Last Admin: 01/13/21 17:58 Dose: 300 mg Documented by: MARIANO Vital Signs Vital signs: Vital Signs - 8 hr 01/13/21 11:53 01/13/21 11:54 01/13/21 12:00 Pulse Rate 41 L 40 L 40 L Respiratory Rate 22 18 24 Blood Pressure 180/84 H 172/82 H Pulse Oximetry 100 100 100 01/13/21 12:30 01/13/21 13:00 01/13/21 13:01 Pulse Rate 42 L 40 L 41 L Respiratory Rate 20 13 20 Blood Pressure 176/82 H 176/80 H Pulse Oximetry 99 100 99 01/13/21 13:30 01/13/21 13:31 01/13/21 14:00 Pulse Rate 40 L 40 L 40 L Respiratory Rate 27 H 19 22 Blood Pressure 192/88 H Pulse Oximetry 98 100 100 01/13/21 14:01 01/13/21 14:30 01/13/21 14:31 Pulse Rate 40 L 39 L 39 L Respiratory Rate 19 12 16 Blood Pressure 155/69 H 189/81 H Pulse Oximetry 99 99 98 01/13/21 16:24 01/13/21 16:26 01/13/21 16:30 Pulse Rate 42 L 41 L Respiratory Rate 14 15 Blood Pressure 159/74 H 175/83 H Pulse Oximetry 98 01/13/21 17:00 01/13/21 17:01 01/13/21 17:30 Pulse Rate 41 L 43 L Respiratory Rate 22 27 H Blood Pressure 166/79 H Pulse Oximetry 100 100 01/13/21 17:38 01/13/21 18:00 01/13/21 18:01 Pulse Rate 43 L 43 L 44 L Respiratory Rate 20 21 22 Blood Pressure 184/84 H 153/72 H Pulse Oximetry 100 99 100 01/13/21 18:19 01/13/21 18:30 01/13/21 19:00 Pulse Rate 46 L 43 L Respiratory Rate 21 16 Blood Pressure 177/81 H 163/74 H 156/71 H Pulse Oximetry 100 98 Medical Decision Making Lab Data Lab results reviewed: Yes I reviewed the patient's lab results. Result diagrams: 01/13/21 10:30 01/13/21 10:30 Labs: Lab Results 01/13/21 01/13/21 01/13/21 Range/Units 10:30 10:30 10:30 WBC 8.9 (4.5-11.0) X10^3/uL RBC 3.70 L (4.5-5.9) X10^6/uL Hgb 11.1 L (13.5-17.5) g/dL Hct 33.8 L (41-53) % MCV 91.5 (80-100) fL MCH 30.0 (26-34) PG MCHC 32.8 (30-36) % RDW 17.1 H (11.6-14.8) % Plt Count 204 (150-400) X10^3/uL Neut % (Auto) 67.1 (50-75) % Lymph % (Auto) 16.5 L (25-40) % [place] % (Auto) 14.1 H (3-14) % Eos % (Auto) 1.7 L (2-4) % Baso % (Auto) 0.6 (0-2) % Neut # (Auto) 5900 (5262-9335) /uL Lymph # (Auto) 1500 (0564-8402) /uL [place] # (Auto) 1200 H (0-900) /uL Eos # (Auto) 200 (0-450) /uL Baso # (Auto) 100 (0-100) /uL PT 12.9 H (10.1-12.7) SECONDS INR 1.2 (0.9-1.3) APTT 34 (26.4-36.2) SECONDS Sodium 134 L (137-145) mmol/L Potassium 4.0 (3.4-5.1) mmol/L Chloride 92 L (98-107) mmol/L Carbon Dioxide 28 (22-32) mmol/L BUN 27 H (9-20) mg/dL Creatinine 7.17 H (0.66-1.25) mg/dL Estimated GFR 7.9 L (>60) mL/min BUN/Creatinine Ratio 3.8 L (6-22) Glucose 237 H (70-100) mg/dL Calcium 10.2 (8.4-10.2) mg/dL Total Bilirubin 0.7 (0.2-1.3) mg/dL AST 21 (17-59) IU/L ALT 25 (<50) IU/L Alkaline Phosphatase 165 H (38-126) U/L Total Creatine Kinase 60 (55-170) U/L CK-MB (CK-2) TNP CK-MB (CK-2) Rel Index TNP Troponin I 0.168 H* (0.01-0.034) ng/mL Total Protein 7.7 (6.3-8.2) g/dL Albumin 4.7 (3.5-5.0) g/dL Globulin 3.0 (1.7-4.1) g/dL Albumin/Globulin Ratio 1.6 (1.0-2.8) SARS-CoV-2 (PCR) (Negative) 01/13/21 Range/Units 16:40 WBC (4.5-11.0) X10^3/uL RBC (4.5-5.9) X10^6/uL Hgb (13.5-17.5) g/dL Hct (41-53) % MCV (80-100) fL MCH (26-34) PG MCHC (30-36) % RDW (11.6-14.8) % Plt Count (150-400) X10^3/uL Neut % (Auto) (50-75) % Lymph % (Auto) (25-40) % [place] % (Auto) (3-14) % Eos % (Auto) (2-4) % Baso % (Auto) (0-2) % Neut # (Auto) (1033-0927) /uL Lymph # (Auto) (3863-1693) /uL [place] # (Auto) (0-900) /uL Eos # (Auto) (0-450) /uL Baso # (Auto) (0-100) /uL PT (10.1-12.7) SECONDS INR (0.9-1.3) APTT (26.4-36.2) SECONDS Sodium (137-145) mmol/L Potassium (3.4-5.1) mmol/L Chloride (98-107) mmol/L Carbon Dioxide (22-32) mmol/L BUN (9-20) mg/dL Creatinine (0.66-1.25) mg/dL Estimated GFR (>60) mL/min BUN/Creatinine Ratio (6-22) Glucose (70-100) mg/dL Calcium (8.4-10.2) mg/dL Total Bilirubin (0.2-1.3) mg/dL AST (17-59) IU/L ALT (<50) IU/L Alkaline Phosphatase (38-126) U/L Total Creatine Kinase (55-170) U/L CK-MB (CK-2) CK-MB (CK-2) Rel Index Troponin I (0.01-0.034) ng/mL Total Protein (6.3-8.2) g/dL Albumin (3.5-5.0) g/dL Globulin (1.7-4.1) g/dL Albumin/Globulin Ratio (1.0-2.8) SARS-CoV-2 (PCR) Negative (Negative) Imaging Data CT scan - head: Radiologist's Impression: [place] [address] CT Scan Report Signed Patient: Ethan Remy MR#: [id number] : 1965 Acct:[id number] Age/Sex: 55 / M Date of Service: 01/13/21 Loc: ED Accession Number: [id number] ?? Procedure: CT Stroke Ordering Provider: Ishmael Barry D.O. PROCEDURE:? CT STROKE ? INDICATIONS:? left side numbness ? TECHNIQUE:? Noncontrast 4.5 mm thick angled axial sections acquired from the foramen magnum to the vertex, with coronal reformats.? For radiation dose reduction, the following was used:? automated exposure control, adjustment of mA and/or kV according to patient size.? ? COMPARISON:? None. ? FINDINGS:? Image quality:? Excellent.? ? CSF spaces:? Basal cisterns are patent.? No extra-axial fluid collections.? The ventricles are symmetric in size and shape.? ? Brain:? No intracranial bleeds or masses.? There is cerebral volume loss for age, with resultant ventricular and sulcal prominence.? There are periventricular and deep white matter chronic small vessel ischemic changes.? There is intracranial internal carotid artery and vertebral artery atherosclerosis.? ? Skull and face:? Calvarium and visualized facial bones appear intact, without suspicious lesions.? ? Sinuses:? Visualized sinuses and mastoids are clear.? ? IMPRESSION:? ? 1. No acute intracranial disease process. ? 2. Findings telephoned to Dr. Barry on January 13, 2021 at 10:50 a.m..? ? This study fulfills neurological imaging criteria for inclusion or exclusion of acute stroke therapies based on available published neurological guidelines.? ? ? Dictated by: Jessy Vega MD, PhD on 01/13/2021 at 10:49 ? ? Approved by: Jessy Vega MD, PhD on 01/13/2021 at 10:51? Chest x-ray: Radiologist's Impression: [address] [address] XRay Report Signed Patient: Ethan Remy MR#: [id number] : 1965 Acct:[id number] Age/Sex: 55 / M Date of Service: 01/13/21 Loc: ED Accession Number: [id number] ?? Procedure: XR chest 1V Ordering Provider: Ishmael Barry D.O. PROCEDURE:? XR CHEST 1V ? INDICATIONS:? Possible stroke ? TECHNIQUE:? One view of the chest was acquired.? ? COMPARISON:? [facility], CT, CT ANGIO HEAD AND NECK, 01/13/2021, 10:32.? [facility], CT, CT STROKE, 01/13/2021, 10:32.? [facility], CR, XR CHEST 2V, 12/23/2020, 11:29. ? FINDINGS:? ? Surgical changes and devices:? None.? ? Lungs and pleura:? An incomplete inspiratory result is noted, causing a crowded appearance to the lung markings.? No focal infiltrates are seen.? No pneumothorax or significant pleural effusions are seen. ? ? Mediastinum:? Mediastinal contours appear normal.? Heart size is normal.? ? Bones and chest wall:? No suspicious bony lesions.? Overlying soft tissues appear unremarkable.? ? ? IMPRESSION:? ? Limited portable chest examination, without a significant cardiopulmonary abnormality identified.? ? ? Dictated by: Armando Atkins M.D. on 01/13/2021 at 10:00 ? ? Approved by: Armando Atkins M.D. on 01/13/2021 at 10:00? CTA - brain/neck: Radiologist's Impression: [address] [address] [address] Scan Report Signed Patient: Ethan Remy MR#: [id number] : 1965 Acct:[id number] Age/Sex: 55 / M Date of Service: 01/13/21 Loc: ED Accession Number: [id number] ?? Procedure: CT angio head and neck Ordering Provider: Ishmael Barry D.O. PROCEDURE:? CT ANGIO HEAD AND NECK ? INDICATIONS:? eval for LVO L sided numbness ? TECHNIQUE:? Noncontrast images were performed earlier in the day and not repeated.? ? After the administration of intravenous contrast, 1 mm thick sections acquired from the aortic arch through the [place] of [place].? Post-contrast 4.5 mm thick sections then re-acquired from the foramen magnum to the vertex.? 3-dimensional uvkngpe-dfmyxjsew-ieektqxqlw (MIP) and/or volume rendering reformats were acquired of the central intracranial vasculature and neck separately. ? COMPARISON:? [facility], MR, BRAIN (IAC) W AND WO CONTRAST, 07/07/2008, 8:33.? [facility], CR, XR CHEST 1V, 01/13/2021, 10:30.? [facility], CT, CT STROKE, 01/13/2021, 10:32. ? FINDINGS:? Image quality:? Excellent.? ? BRAIN:? CSF spaces:? Ventricles are normal in size and shape.? Basal cisterns are patent.? No extra-axial fluid collections.? ? Brain:? No midline shift.? No intracranial bleeds or masses.? Bell-white matter interface appears intact.? ? Skull and face:? Calvarium and facial bones appear intact, without suspicious lesions.? Orbits appear normal.? ? Sinuses:? Sinuses and mastoids are clear.? ? HEAD CT ANGIOGRAPHY:? Anterior circulation:? Intracranial internal carotid arteries demonstrate generalized atherosclerotic calcification and irregularity, with approximately 60% narrowing on the right and approximately 40% narrowing on the left. There is a diminutive right A1 segment, with a corresponding robust left A1 segment.? This is considered to be a normal developmental variant of the [place] of [place], of typically no clinical consequence. ? The flow within the paired anterior cerebral arteries is otherwise normal and symmetric.? The flow within the middle cerebral arteries is normal and symmetric.? The anterior communicating artery is seen.? No aneurysms are seen.? ? Posterior circulation:? The right V4 segment demonstrates an approximately 50% narrowing within its midportion, yet otherwise appears normal.? There is decreased flow seen within the left V4 segment.? There is a normal appearing basilar artery.? There is a prominent right posterior communicating artery seen, with an accompanying diminutive right P1 segment. This is attributed to a type origin of the right posterior cerebral artery, which is considered to be a normal developmental variant of typically no clinical consequence. Flow within the posterior cerebral arteries is normal and symmetric.? No aneurysms are seen.? ? NECK CT ANGIOGRAPHY:? Carotid system:? The great vessels demonstrate a conventional anatomy as they arise from the aortic arch.? The origins of the common carotid arteries appear patent.? The common carotid arteries demonstrate normal caliber and courses.? The bifurcation regions demonstrate atherosclerotic irregularity and calcification, with 60-70% narrowing on the right and approximately 80% narrowing on the left.? The internal carotid arteries demonstrate normal calibers and courses.? ? Posterior circulation:? The left vertebral artery is occluded at its origin.? The left vertebral artery demonstrates partial reconstitution at its V4 level.? The right vertebral artery demonstrates 30-40% narrowing at its origin.? The more distal right vertebral artery is unremarkable. ? Soft tissues:? Visualized neck soft tissues demonstrate no suspicious abnormalities.? Advanced coronary artery calcification can be seen. ? Bones:? No suspicious bony lesions.? Visualized cervical spine appears normally aligned.? Mild to moderate cervical spine degenerative changes are seen. ? ? IMPRESSION:? 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 ? Focal atherosclerotic calcification and narrowing seen of the proximal internal carotid arteries, with approximately 80% narrowing on the left and 60-70% narrowing on the right. ? No significant brain abnormality is detected by CT.? If clinically appropriate, please consider a follow-up brain MRI. ? ? Incidental note is made of: Prominent coronary artery calcification Vlftlv-[id number] developmental anomalies ? Any quantitative measurements of stenosis were performed using NASCET criteria.? ? ? Dictated by: Armando Atkins M.D. on 01/13/2021 at 10:02 ? ? Approved by: Armando Atkins M.D. on 01/13/2021 at 10:09? MRI brain: Radiologist's Impression: [address] [address] Magnetic Resonance Report Signed Patient: Ethan Remy MR#: [id number] : 1965 Acct:[id number] Age/Sex: 55 / M Date of Service: 01/13/21 Loc: ED Accession Number: [id number] ?? Procedure: MR head/brain wo con Ordering Provider: Ishmael Barry D.O. PROCEDURE:? MR HEAD/BRAIN WO CON ? INDICATIONS:? eval for stroke ? TECHNIQUE:? Non-contrast axial T1 spin echo, axial T2 fast spin echo, sagittal and axial FLAIR, coronal T2 fast spin echo, axial gradient echo, axial diffusion and ADC through the brain.? ? COMPARISON:? None. ? FINDINGS:? Image quality:? Excellent.? ? CSF spaces:? Ventricles appear symmetric in size and shape.? Basal cisterns are patent.? No extra-axial fluid collections.? ? Brain:? No intracranial bleeds or mass effects.? There is cerebral volume loss for age.? There are periventricular and deep white matter chronic small vessel ischemic changes.? Brainstem appears normal.? Normal intravascular flow voids are present.? ? On the diffusion sequence, small 2 mm hyperintensity noted in the pulvinar nucleus of the left thalamus as well as in the posterior aspect of the right basis pontis.? No mass effect or significant edema. ? Skull and face:? Calvarial bone marrow is normal in signal.? Orbits are normal.? ? Sinuses:? Sinuses and mastoids are clear.? ? IMPRESSION:? ? 1. Small acute lacunar infarcts noted in the left thalamus and right alba without mass effect, hemorrhage or midline shift ? 2. Minimal atrophy and white matter chronic ischemic change ? Approved by: Tomas Bermudez M.D. on 01/13/2021 at 15:01? ECG Data Attestation: I personally reviewed and interpreted this ECG as follows: Interpretation: Sinus bradycardia, ventricular rate of 40 Left axis deviation First-degree AV block MT interval [address] T wave changes MDM Narrative Medical decision making narrative: Patient arrived approximately 4 hours after his last known normal. NIH score of 1 and this was given for subjective findings of decreased sensation to light touch in the left side of his body. The rest of his neurologic exam is unremarkable. Head CT is unremarkable. CTA does show occlusion of the left vertebral artery. And also has partial occlusions of his bilateral internal carotid arteries. I did discuss the case with Dr. Montenegro with Stroke Neurology who recommended obtaining an MRI for further evaluation as if he did have a stroke on his MRI he could potentially need further workup include vascular surgery. MRI was obtained and does show look cardiology clinical consultant infarcts. I did discuss the case with Dr. Narvaez on-call neurology is [facility] who also agrees the patient should be transferred for further evaluation. He was given a dose of Plavix. I did discuss the case with Dr. Paul with Internal Medicine at [facility] who accepts the patient for transfer. Informed the patient of all the findings of the MRI and also the need for transfer. Patient and expressed understanding. Discharge Plan Departure Patient Disposition: [facility] Clinical Impression: Acute lacunar infarction, End stage renal disease on dialysis, Neuropathy, Bradycardia Prescriptions: No Action gabapentin 100 mg capsule 100 mg PO BEDTIME Qty: 90 RF: 3 carvedilol 25 mg tablet 25 mg PO BID RF: 0 pantoprazole 40 mg tablet,delayed release (DR/EC) 40 mg PO DAILY RF: 0 atorvastatin 40 mg tablet 40 mg PO DAILY RF: 0 furosemide 80 mg tablet 80 mg PO DAILY RF: 0 losartan 100 mg tablet 100 mg PO DAILY RF: 0 aspirin 81 mg tablet,delayed release (DR/EC) 81 mg PO DAILY RF: 0 sevelamer carbonate 800 mg tablet 1,600 mg PO TID RF: 0 hydralazine 25 mg tablet 50 mg PO BID RF: 0 Referrals: Mahad Bradford MD [Primary Care Provider] -
[2021-01-13 10:43] LABS: Add Manual Diff / Slide Review NO; Basophils Absolute Auto 100 /uL (0-100); Basophils Percent Auto 0.6 % (0-2); Eosinophils Absolute Auto 200 /uL (0-450); Eosinophils Percent Auto 1.7 % (2-4); Hematocrit 33.8 % (41-53); Hemoglobin 11.1 g/dL (13.5-17.5); Lymphocytes Absolute Auto 1500 /uL (1100-4500); Lymphocytes Percent Auto 16.5 % (25-40); Mean Corpuscular HGB Conc 32.8 % (30-36); Mean Corpuscular Volume 91.5 fL (80-100); Monocytes Absolute Auto 1200 /uL (0-900); Monocytes Percent Auto 14.1 % (3-14); Neutrophils Absolute Auto 5900 /uL (1500-7000); Neutrophils Percent Auto 67.1 % (50-75); Platelet Count 204 X10^3/uL (150-400); Red Cell Distribution Width 17.1 % (11.6-14.8); White Blood Cell Count 8.9 X10^3/uL (4.5-11.0)
[2021-01-13 10:53] LABS: INR 1.2 (0.9-1.3); Prothrombin Time 12.9 SECONDS (10.1-12.7)
[2021-01-13 10:56] LABS: Alanine Aminotransferase 25 IU/L (<50); Albumin 4.7 g/dL (3.5-5.0); Albumin Globulin Ratio 1.6 (1.0-2.8); Alkaline Phosphatase 165 U/L (38-126); Aspartate Aminotransferase 21 IU/L (17-59); BUN Creatinine Ratio 3.8 (6-22); Bilirubin Total 0.7 mg/dL (0.2-1.3); Blood Urea Nitrogen 27 mg/dL (9-20); Calcium 10.2 mg/dL (8.4-10.2); Carbon Dioxide 28 mmol/L (22-32); Chloride 92 mmol/L (98-107); Creatine Kinase 60 U/L (55-170); Estimated Glomerular Filt Rate 7.9 mL/min (>60); Glucose 237 mg/dL (70-100); HEMOLYSIS < 15 (0-50); PTT Partial Thromboplastin Tim 34 SECONDS (26.4-36.2); Sodium 134 mmol/L (137-145); Total Protein 7.7 g/dL (6.3-8.2)
[2021-01-13 11:40] LABS: Troponin I 0.168 ng/mL (0.01-0.034)
--- NOTE | 2021-01-13 12:57 | DI.MRI.S_ITS ---
PROCEDURE: MR HEAD/BRAIN WO CON INDICATIONS: eval for stroke TECHNIQUE: Non-contrast axial T1 spin echo, axial T2 fast spin echo, sagittal and axial FLAIR, coronal T2 fast spin echo, axial gradient echo, axial diffusion and ADC through the brain. COMPARISON: None. FINDINGS: Image quality: Excellent. CSF spaces: Ventricles appear symmetric in size and shape. Basal cisterns are patent. No extra-axial fluid collections. Brain: No intracranial bleeds or mass effects. There is cerebral volume loss for age. There are periventricular and deep white matter chronic small vessel ischemic changes. Brainstem appears normal. Normal intravascular flow voids are present. On the diffusion sequence, small 2 mm hyperintensity noted in the pulvinar nucleus of the left thalamus as well as in the posterior aspect of the right basis pontis. No mass effect or significant edema. Skull and face: Calvarial bone marrow is normal in signal. Orbits are normal. Sinuses: Sinuses and mastoids are clear. IMPRESSION: 1. Small acute lacunar infarcts noted in the left thalamus and right alba without mass effect, hemorrhage or midline shift 2. Minimal atrophy and white matter chronic ischemic change Approved by: Tomas Bermudez M.D. on 01/13/2021 at 15:01
[2021-01-13 17:13] LABS: COVID19 -Nasal RAPID Negative (Negative)
[2021-01-13] MEDS: CLOPIDOGREL 75 MG TABLET 300 MG PO (17:58)
[2021-01-13] MEDS: ACETAMINOPHEN 325 MG TABLET 650 MG PO (19:23)
== END 2021-01-14 00:05 | disposition short-term general hospital (02) ==
PROVIDERS: Emergency Provider Emergency Medicine; PCP Student in an Organized Health Care Education/Training Program
DX: I63.81 Other cerebral infarction due to occlusion or stenosis of small artery (principal); N18.6 End stage renal disease; Z99.2 Dependence on renal dialysis; G62.9 Polyneuropathy, unspecified; R00.1 Bradycardia, unspecified; Z20.822 Contact with and (suspected) exposure to COVID-19
CPT/HCPCS: 36415; 70450; 70496; 70498; 70551; 71045; 80053; 82550; 84484; 85025; 85610; 85730; 87635; 93005; 99285; C9803

== ENCOUNTER 2021-05-11 20:07 | Emergency (ER) | payer MEDICARE, OTHER, SELFPAY ==
[2021-05-11 20:13] VITALS: BP 146/77; PULSE 77; RESP 18; TEMP 37.1; O2SAT 99
[2021-05-11 20:43] LABS: Add Manual Diff / Slide Review NO; Basophils Absolute Auto 100 /uL (0-100); Basophils Percent Auto 0.5 % (0-2); Eosinophils Absolute Auto 200 /uL (0-450); Eosinophils Percent Auto 1.3 % (2-4); Hematocrit 30.5 % (41-53); Hemoglobin 10.1 g/dL (13.5-17.5); Lymphocytes Absolute Auto 1000 /uL (1100-4500); Lymphocytes Percent Auto 8.1 % (25-40); Mean Corpuscular Hemoglobin 30.2 PG (26-34); Mean Corpuscular Volume 91.3 fL (80-100); Monocytes Absolute Auto 1900 /uL (0-900); Monocytes Percent Auto 14.7 % (3-14); Neutrophils Absolute Auto 9700 /uL (1500-7000); Neutrophils Percent Auto 75.4 % (50-75); Platelet Count 282 X10^3/uL (150-400); Red Blood Cell Count 3.34 X10^6/uL (4.5-5.9); Red Cell Distribution Width 16.9 % (11.6-14.8); White Blood Cell Count 12.8 X10^3/uL (4.5-11.0)
[2021-05-11 20:50] LABS: INR 1.4 (0.9-1.3); Prothrombin Time 15.4 SECONDS (10.1-12.7)
[2021-05-11 20:52] LABS: PTT Partial Thromboplastin Tim 34 SECONDS (26.4-36.2)
[2021-05-11 20:53] LABS: Lactate (Lactic Acid) 1.1 mmol/L (0.7-2.1)
[2021-05-11 20:55] LABS: Alanine Aminotransferase 9 IU/L (<50); Albumin 4.5 g/dL (3.5-5.0); Albumin Globulin Ratio 1.1 (1.0-2.8); Alkaline Phosphatase 283 U/L (38-126); Aspartate Aminotransferase 31 IU/L (17-59); BUN Creatinine Ratio 3.4 (6-22); Bilirubin Total 1.2 mg/dL (0.2-1.3); Blood Urea Nitrogen 25 mg/dL (9-20); Calcium 9.8 mg/dL (8.4-10.2); Carbon Dioxide 33 mmol/L (22-32); Chloride 91 mmol/L (98-107); Estimated Glomerular Filt Rate 7.8 mL/min (>60); Glucose 153 mg/dL (70-100); HEMOLYSIS < 15 (0-50); Lipase 108 U/L (23-300); Potassium 4.3 mmol/L (3.4-5.1); Sodium 134 mmol/L (137-145); Total Protein 8.5 g/dL (6.3-8.2)
[2021-05-11 21:11] LABS: Procalcitonin 1.32 ng/mL (<0.5)
--- NOTE | 2021-05-11 21:27 | ED_ITS ---
HPI - Extremity Problem General Chief complaint: Extremity Problem,Nontraumatic Stated complaint: inflamed lower legs Time Seen by Provider: 05/11/21 21:17 Source: patient Mode of arrival: Ambulatory History of Present Illness HPI Narrative: Patient is a 55-year-old male chronic kidney disease on dialysis Sunday, history of CVA in January of 2021 recent carotid endarterectomy at [place] a week and half ago, presenting today with bilateral lower extremity redness swelling and pain. He said he noticed some pain at dialysis today but the redness progressed quite quickly tonight. He is quite cold but currently afebrile. It is quite unbearable to ambulate or bear weight. Taking oxycodone from his recent surgery says does not help pain much but makes him go to sleep. He has a chronic ongoing cough which remains unchanged, he denies any chest pain palpitations or shortness of breath. Related Data Home Medications Medication Instructions Recorded Confirmed sevelamer carbonate 800 mg tablet 1,600 mg PO TID 12/30/18 02/08/21 aspirin 81 mg tablet,delayed 81 mg PO DAILY 09/22/20 02/08/21 release atorvastatin 40 mg tablet 40 mg PO DAILY 09/22/20 02/08/21 carvedilol 25 mg tablet 25 mg PO BID 09/22/20 02/08/21 furosemide 80 mg tablet 80 mg PO DAILY 09/22/20 02/08/21 losartan 100 mg tablet 100 mg PO DAILY 09/22/20 02/08/21 Previous Rx's Medication Instructions Recorded gabapentin 100 mg capsule 100 mg PO BEDTIME #90 cap 01/11/21 clopidogrel 75 mg tablet 75 mg PO DAILY #90 tab 04/16/21 doxycycline hyclate 100 mg capsule 100 mg PO BID #20 cap 05/11/21 oxycodone 5 mg tablet 5 mg PO Q6H PRN #10 tab 05/11/21 Allergies Allergy/AdvReac Type Severity Reaction Status Date / Time No Known Drug Allergies Allergy Verified 02/08/21 13:34 Review of Systems Review of Systems Narrative: GENERAL: Denies chills, fatigue, malaise, fever, sweats, travel HEENT: Denies sinus pain, ear pain, sore throat, difficulty swallowing, neck pain RESPIRATORY: Denies dyspnea, cough, wheezing, hemoptysis, sputum. CARDIOVASCULAR: Denies chest pain, palpitations, orthopnea, edema GASTROINTESTINAL: Denies nausea, vomiting, abdominal pain, diarrhea, constipation, melena. : Denies dysuria, frequency, incontinence, hematuria, urinary retention, flank pain. MUSCULOSKELETAL: Denies weakness, joint pain, or bony pain SKIN: See HPI NEUROLOGIC: Denies weakness, dizziness, headache, numbness, change in speech, confusion PSYCHIATRIC: No concerning psychosocial issues. 12 point review of systems is negative except for those stated above and HPI Patient History Medical History Carotid artery stenosis with cerebral infarction Chronic back pain (~1989) Coronary artery disease End stage renal disease on dialysis Essential hypertension Foot pain (~2010) History of hemodialysis (~2018) Hyperlipidemia associated with type 2 diabetes mellitus Kidney disease (~2018) Kidney failure (~2018) Presence of arterial-venous shunt (for dialysis) Shingles rash Tinnitus Type 2 diabetes mellitus Vertebral artery stenosis Wears glasses Surgical History Anesthesia Fistula (~07/2018) History of repair of rotator cuff (~09/2016) S/P CABG x 2 (~2018) Family History Father Hypertension Hyperlipidemia Mother Diabetes mellitus History of heart disease Hypertension Hyperlipidemia Stroke Sister Hyperlipidemia Hypertension Sister Cancer Grandfather Cancer Grandmother Liver disease Grandfather Stroke Grandmother History of heart disease Social History Smoking Status: Never smoker Smoking Status: Never smoker alcohol intake frequency: a few times a month Substance Use Type: does not use Exam Initial Vital Signs Initial Vital Signs: Vital Signs Temperature 98.7 F 05/11/21 20:13 Pulse Rate 77 05/11/21 20:13 Respiratory Rate 18 05/11/21 20:13 Blood Pressure 146/77 H 05/11/21 20:13 Pulse Oximetry 99 05/11/21 20:13 GENERAL: Alert 55-year-old male HEENT: Head atraumatic,EOMI, pupils reactive, face symmetric, moist mucous membranes CARDIOVASCULAR: Regular rate and rhythm without murmurs, rubs or gallops. RESPIRATORY: Breath sounds equal bilaterally, no wheezes rales or rhonchi. ABDOMEN: Soft, nontender. Normoactive bowel sounds all 4 quadrants. No guarding or rebound. EXTREMITIES: Normal range of motion, no clubbing. Neurovascularly i. strong distal pedal pulses is mild swelling (+1 pitting edema) sensitive and tender to touch NEUROLOGICAL: Alert and oriented x4.Normal gait and speech. SKIN: Erythematous lower extremities bilateral medial side not circumferential only since mid legs Course Orders Ordered: ED Orders 05/11/21 19:34 Complete Blood Count AUTO DIFF Stat Comprehensive Metabolic Panel Stat Lactate (Lactic Acid) Stat Lipase Stat Partial Thromboplastin Time Stat Procalcitonin Stat Prothrombin Time INR Stat 05/11/21 20:17 EKG-12 Lead Stat RT Consult Eval and Treat NOW 05/11/21 21:08 Blood Culture Stat 05/11/21 22:40 COVID19 -Nasal swab/Pre-Proc Stat Discontinued Medications Diphenhydramine HCl (Diphenhydramine 50 Mg/Ml Vial) 25 mg IV NOW ONE Stop: 05/11/21 22:47 Last Admin: 05/11/21 22:56 Dose: 25 mg Documented by: DONNIE Hydromorphone HCl (Hydromorphone 1 Mg Inj) 1 mg IV NOW ONE Stop: 05/11/21 21:42 Last Admin: 05/11/21 22:03 Dose: 1 mg Documented by: DONNIE Ceftriaxone Sodium 2,000 mg/ (Sodium Chloride) 100 mls @ 200 mls/hr IV NOW ONE Stop: 05/11/21 21:37 Last Infusion: 05/11/21 23:00 Dose: 0 mls/hr Documented by: Admin: 05/11/21 22:04 Dose: 200 mls/hr Documented by: DONNIE Vital Signs Vital signs: Vital Signs - 8 hr 05/11/21 20:13 05/11/21 22:11 05/11/21 22:12 Temperature 98.7 F Pulse Rate 77 72 71 Respiratory Rate 18 Blood Pressure 146/77 H 137/77 Pulse Oximetry 99 99 98 05/11/21 22:30 05/11/21 23:00 05/11/21 23:30 Temperature Pulse Rate 70 73 72 Respiratory Rate 23 12 Blood Pressure 135/76 164/91 H 156/89 H Pulse Oximetry 97 100 98 MDM - Extremity (Nontraumatic) Lab Data Result diagrams: 05/11/21 19:34 05/11/21 19:34 Labs: Lab Results 05/11/21 05/11/21 05/11/21 Range/Units 19:34 19:34 19:34 WBC 12.8 H (4.5-11.0) X10^3/uL RBC 3.34 L (4.5-5.9) X10^6/uL Hgb 10.1 L (13.5-17.5) g/dL Hct 30.5 L (41-53) % MCV 91.3 (80-100) fL MCH 30.2 (26-34) PG MCHC 33.0 (30-36) % RDW 16.9 H (11.6-14.8) % Plt Count 282 (150-400) X10^3/uL Neut % (Auto) 75.4 H (50-75) % Lymph % (Auto) 8.1 L (25-40) % [place] % (Auto) 14.7 H (3-14) % Eos % (Auto) 1.3 L (2-4) % Baso % (Auto) 0.5 (0-2) % Neut # (Auto) 9700 H (3305-2026) /uL Lymph # (Auto) 1000 L (5906-0216) /uL [place] # (Auto) 1900 H (0-900) /uL Eos # (Auto) 200 (0-450) /uL Baso # (Auto) 100 (0-100) /uL PT 15.4 H (10.1-12.7) SECONDS INR 1.4 H (0.9-1.3) APTT 34 (26.4-36.2) SECONDS Sodium 134 L (137-145) mmol/L Potassium 4.3 (3.4-5.1) mmol/L Chloride 91 L (98-107) mmol/L Carbon Dioxide 33 H (22-32) mmol/L BUN 25 H (9-20) mg/dL Creatinine 7.31 H (0.66-1.25) mg/dL Estimated GFR 7.8 L (>60) mL/min BUN/Creatinine Ratio 3.4 L (6-22) Glucose 153 H (70-100) mg/dL Lactate (0.7-2.1) mmol/L Calcium 9.8 (8.4-10.2) mg/dL Total Bilirubin 1.2 (0.2-1.3) mg/dL AST 31 (17-59) IU/L ALT 9 (<50) IU/L Alkaline Phosphatase 283 H (38-126) U/L Total Protein 8.5 H (6.3-8.2) g/dL Albumin 4.5 (3.5-5.0) g/dL Globulin 4.0 (1.7-4.1) g/dL Albumin/Globulin Ratio 1.1 (1.0-2.8) Lipase 108 (23-300) U/L Procalcitonin 1.32 H (<0.5) ng/mL SARS-CoV-2 (PCR) (Negative) 05/11/21 05/11/21 Range/Units 19:34 22:40 WBC (4.5-11.0) X10^3/uL RBC (4.5-5.9) X10^6/uL Hgb (13.5-17.5) g/dL Hct (41-53) % MCV (80-100) fL MCH (26-34) PG MCHC (30-36) % RDW (11.6-14.8) % Plt Count (150-400) X10^3/uL Neut % (Auto) (50-75) % Lymph % (Auto) (25-40) % [place] % (Auto) (3-14) % Eos % (Auto) (2-4) % Baso % (Auto) (0-2) % Neut # (Auto) (0899-2796) /uL Lymph # (Auto) (7890-8225) /uL [place] # (Auto) (0-900) /uL Eos # (Auto) (0-450) /uL Baso # (Auto) (0-100) /uL PT (10.1-12.7) SECONDS INR (0.9-1.3) APTT (26.4-36.2) SECONDS Sodium (137-145) mmol/L Potassium (3.4-5.1) mmol/L Chloride (98-107) mmol/L Carbon Dioxide (22-32) mmol/L BUN (9-20) mg/dL Creatinine (0.66-1.25) mg/dL Estimated GFR (>60) mL/min BUN/Creatinine Ratio (6-22) Glucose (70-100) mg/dL Lactate 1.1 (0.7-2.1) mmol/L Calcium (8.4-10.2) mg/dL Total Bilirubin (0.2-1.3) mg/dL AST (17-59) IU/L ALT (<50) IU/L Alkaline Phosphatase (38-126) U/L Total Protein (6.3-8.2) g/dL Albumin (3.5-5.0) g/dL Globulin (1.7-4.1) g/dL Albumin/Globulin Ratio (1.0-2.8) Lipase (23-300) U/L Procalcitonin (<0.5) ng/mL SARS-CoV-2 (PCR) Negative (Negative) ECG Data Interpretation: Normal sinus rhythm rate 70 IA interval 226 QRS 100 QTC 460 1st degree heart bl ock noted on previous EKG in January 2021, no ischemic changes today MDM Narrative Medical decision making narrative: The patient is found to have elevated procalcitonin mild leukocytosis and erythematous lower extremities suggestion of cellulitis and infection. He is afebrile is not septic. He is given 1 dose of Rocephin in the ED. Will send him home on doxycycline which does not require renal adjustment and does cover both strep and MRSA. At this time patient does not meet inpatient criteria, and actually would prefer to go home with antibiotics and return if symptoms worsen which I feel is completely reasonable. Discharge Plan Departure Patient Disposition: Home Clinical Impression: Cellulitis Instructions: DI for Cellulitis -- Adult Activity Restrictions/Additional Instructions: *You have been diagnosed with cellulitis *What to do: At this time chief continue to monitor. You may need IV antibiotics if this gets worse *Continue to take medications as directed Doxycycline 100 mg twice a day 7 days--> SENT TO [facility] *Follow up with your primary care provider in 2-3 days or call [phone] *Return to ER if you should have increasing redness swelling pain or any new, worsening or concerning symptoms Prescriptions: New doxycycline hyclate 100 mg capsule 100 mg PO BID Qty: 20 0RF oxycodone 5 mg tablet 5 mg PO Q6H PRN (Reason: pain) Qty: 10 0RF No Action gabapentin 100 mg capsule 100 mg PO BEDTIME Qty: 90 3RF clopidogrel 75 mg tablet 75 mg PO DAILY Qty: 90 3RF carvedilol 25 mg tablet 25 mg PO BID 0RF Label Comments: Hold if heart rate less than 50 Rx Instructions: must administer with a meal/food atorvastatin 40 mg tablet 40 mg PO DAILY 0RF furosemide 80 mg tablet 80 mg PO DAILY 0RF losartan 100 mg tablet 100 mg PO DAILY 0RF aspirin 81 mg tablet,delayed release (DR/EC) 81 mg PO DAILY 0RF sevelamer carbonate 800 mg tablet 1,600 mg PO TID 0RF Rx Instructions: with meals. Referrals: Mahad Bradford MD [Primary Care Provider] -
[2021-05-11] MEDS: HYDROMORPHONE 1 MG INJ IV (22:03)
[2021-05-11] MEDS: cefTRIAXone 2,000 MG in SODIUM CHLORIDE 0.9% 100 ML 200 ML IV (22:04)
[2021-05-11 22:11] VITALS: PULSE 72; O2SAT 99
[2021-05-11 22:12] VITALS: BP 137/77; PULSE 71; O2SAT 98
[2021-05-11 22:30] VITALS: BP 135/76; PULSE 70; O2SAT 97
--- NOTE | 2021-05-11 22:32 | PC.NURSE ---
Patient reports onset of warmth, itchiness, and pain in bilateral feet. History of diabetes with peripheral neuropathy. Goes to dialysis 3x per week. Afebrile, no SOB noted. Bilateral extremities are hot, red and swollen. Covid vaccinated x 2. No open wounds or abrasions noted.
[2021-05-11] MEDS: diphenhydrAMINE 50 MG/ML VIAL 25 MG IV (22:56)
[2021-05-11 23:00] VITALS: BP 164/91; PULSE 73; RESP 23; O2SAT 100
[2021-05-11 23:10] LABS: COVID19 -Nasal RAPID Negative (Negative)
[2021-05-11 23:30] VITALS: BP 156/89; PULSE 72; RESP 12; O2SAT 98
== END 2021-05-11 23:42 | disposition home or self-care (01) ==
PROVIDERS: Emergency Provider Emergency Medicine; PCP Student in an Organized Health Care Education/Training Program
DX: L03.116 Cellulitis of left lower limb (principal); L03.115 Cellulitis of right lower limb; I44.0 Atrioventricular block, first degree; Z20.822 Contact with and (suspected) exposure to COVID-19
CPT/HCPCS: 36415; 80053; 83605; 83690; 84145; 85025; 85610; 85730; 87040; 87635; 93010; 96365; 96375; 99284; C9803; J0696; J1170; J1200

== ENCOUNTER 2021-06-29 16:25 | Emergency (ER) | payer MEDICARE, OTHER, SELFPAY ==
[2021-06-29] VITALS (18 sets, daily range): BP systolic 113–170; BP diastolic 62–84; PULSE 27–85; RESP 17–58; TEMP 36.9; O2SAT 92–100; BMI 26.9
--- NOTE | 2021-06-29 16:59 | ED.GENADULT ---
HPI - General Adult General Chief complaint: Weakness Stated complaint: SOB/PULSE RATE 40/BP LOW FOR HIM Time Seen by Provider: 06/29/21 16:42 Source: patient Mode of arrival: Family Vehicle Limitations: no limitations History of Present Illness HPI narrative: Patient is a 55-year-old male. History of end-stage renal disease on dialysis. History of stroke. History of coronary artery disease. History of diabetes. Was scheduled to get dialysis today. He went to his dialysis appointment. He told them that he has been having dyspnea on exertion for the past couple days. They took his vital signs. Found him to be bradycardic. He did not get dialysis today. He was instructed to come to the emergency department. He arrived by private vehicle. He states that for the past couple days he has had very severe weakness and dyspnea on exertion. When he is sitting he seems to be okay. He has having some chest discomfort but he thinks it is very minor. No changes lower extremity swelling. Related Data Home Medications Medication Instructions Recorded Confirmed sevelamer carbonate 800 mg tablet 1,600 mg PO TID 12/30/18 02/08/21 aspirin 81 mg tablet,delayed 81 mg PO DAILY 09/22/20 02/08/21 release atorvastatin 40 mg tablet 40 mg PO DAILY 09/22/20 02/08/21 carvedilol 25 mg tablet 25 mg PO BID 09/22/20 02/08/21 furosemide 80 mg tablet 80 mg PO DAILY 09/22/20 02/08/21 losartan 100 mg tablet 100 mg PO DAILY 09/22/20 02/08/21 Previous Rx's Medication Instructions Recorded gabapentin 100 mg capsule 100 mg PO BEDTIME #90 cap 01/11/21 clopidogrel 75 mg tablet 75 mg PO DAILY #90 tab 04/16/21 oxycodone 5 mg tablet 5 mg PO Q6H PRN #10 tab 05/11/21 Allergies Allergy/AdvReac Type Severity Reaction Status Date / Time No Known Drug Allergies Allergy Verified 06/29/21 17:15 Review of Systems Review of Systems ROS Unobtainable: All systems reviewed & are unremarkable except as noted in HPI and below Patient History Medical History Carotid artery stenosis with cerebral infarction Chronic back pain (~1989) Coronary artery disease End stage renal disease on dialysis Essential hypertension Foot pain (~2010) History of hemodialysis (~2018) Hyperlipidemia associated with type 2 diabetes mellitus Kidney disease (~2018) Kidney failure (~2018) Presence of arterial-venous shunt (for dialysis) Shingles rash Tinnitus Type 2 diabetes mellitus Vertebral artery stenosis Wears glasses Surgical History Anesthesia Fistula (~07/2018) History of repair of rotator cuff (~09/2016) S/P CABG x 2 (~2018) Family History Father Hypertension Hyperlipidemia Mother Diabetes mellitus History of heart disease Hypertension Hyperlipidemia Stroke Sister Hyperlipidemia Hypertension Sister Cancer Grandfather Cancer Grandmother Liver disease Grandfather Stroke Grandmother History of heart disease Social History Smoking Status: Never smoker Smoking Status: Never smoker alcohol intake frequency: a few times a month Substance Use Type: does not use Exam Initial Vital Signs Initial Vital Signs: Vital Signs Temperature 98.5 F 06/29/21 16:40 Pulse Rate 38 L 06/29/21 16:40 Respiratory Rate 17 06/29/21 16:40 Blood Pressure 155/77 H 06/29/21 16:40 Pulse Oximetry 99 06/29/21 16:40 Const General: cooperative, comfortable, well developed and No ill appearing HENMT Head: normal to inspection and normocephalic Eyes General: appearance normal, both eyes and all related structures Neck Other: Well-healed surgical scar left side of neck consistent with his stated surgical history Chest Chest: normal inspection of the chest Resp Effort & Inspection: normal respiratory effort Auscultation: clear to auscultation bilaterally Cardio Rate: bradycardic Rhythm: regular rhythm GI Inspection: normal to inspection Palpation: soft and No tender Skin General: no rashes or lesions noted Neuro General: patient alert, patient awake, patient oriented x3 and moves all extremities Cognition: normal cognition Speech: speech normal Extrem General: edema Psych Appearance: grossly normal and well kempt Scores GCS [place] coma scale eye opening: Spontaneous [place] coma scale verbal response: Orientated [place] coma scale motor response: Obey commands [place] coma scale total score: 15 Course Orders Ordered: ED Orders 06/29/21 16:50 Complete Blood Count AUTO DIFF Stat Comprehensive Metabolic Panel Stat Lipase Stat Magnesium Stat NT-proBNP (BNP-Adult 18+) Stat Partial Thromboplastin Time Stat Phosphorous Stat Prothrombin Time INR Stat Troponin & CK Cardiac Panel Stat 06/29/21 17:01 EKG-12 Lead Stat 06/29/21 17:13 COVID19 -Nasal swab/Pre-Proc Stat Dopamine HCl/Dextrose (Dopamine 400 Mg-D5w 250 Ml) 400 mg in 250 mls @ 36.571 mls/hr IV TITRATE CHRIS; Protocol Last Titration: 06/29/21 19:31 Dose: Infused Documented by: Dobutamine HCl/Dextrose (Dobutamine 250 Mg In D5w) 250 mg in 250 mls @ 29.257 mls/hr IV TITRATE CHRIS; Protocol Last Admin: 06/29/21 19:32 Dose: 5 mcg/kg/min, 29.257 mls/hr Documented by: Discontinued Medications Atropine Sulfate (Atropine 1 Mg/10 Ml Syringe) 0.5 mg IV NOW ONE Stop: 06/29/21 16:59 Last Admin: 06/29/21 17:02 Dose: 0.5 mg Documented by: MARIANO Fentanyl (Fentanyl 100 Mcg/2 Ml Inj) 100 mcg IV NOW ONE Stop: 06/29/21 19:25 Last Admin: 06/29/21 18:50 Dose: 100 mcg Documented by: Hydromorphone HCl (Hydromorphone 0.5 Mg Inj) 0.5 mg IV NOW ONE Stop: 06/29/21 19:21 Last Admin: 06/29/21 19:22 Dose: 0.5 mg Documented by: KWESI Hydromorphone HCl (Hydromorphone 0.5 Mg Inj) 0.5 mg IV NOW ONE Stop: 06/29/21 19:26 Last Admin: 06/29/21 19:10 Dose: 0.5 mg Documented by: Vital Signs Vital signs: Vital Signs - 8 hr 06/29/21 16:40 06/29/21 16:49 06/29/21 17:00 Temperature 98.5 F Pulse Rate 38 L 33 L 36 L Respiratory Rate 17 23 21 Blood Pressure 155/77 H Pulse Oximetry 99 100 100 06/29/21 17:01 06/29/21 17:30 06/29/21 18:00 Temperature Pulse Rate 38 L 40 L 37 L Respiratory Rate 20 18 17 Blood Pressure 146/67 H 152/70 H 170/84 H Pulse Oximetry 100 100 100 06/29/21 18:20 06/29/21 18:30 06/29/21 18:31 Temperature Pulse Rate 37 L 42 L 39 L Respiratory Rate 38 H 21 20 Blood Pressure 157/75 H 159/67 H Pulse Oximetry 100 100 100 06/29/21 18:38 06/29/21 18:41 06/29/21 18:45 Temperature Pulse Rate 27 L 40 L 60 Respiratory Rate 23 21 48 H Blood Pressure 113/62 124/68 122/80 Pulse Oximetry 100 100 92 06/29/21 19:00 06/29/21 19:02 06/29/21 19:12 Temperature Pulse Rate 44 L 38 L 48 L Respiratory Rate 31 H 20 35 H Blood Pressure 146/67 H 127/71 Pulse Oximetry 97 96 96 06/29/21 19:15 Temperature Pulse Rate Respiratory Rate 20 Blood Pressure 130/71 Pulse Oximetry 95 Medical Decision Making Medical Records Medical records reviewed: Yes I reviewed the patient's medical records. Lab Data Lab results reviewed: Yes I reviewed the patient's lab results. Result diagrams: 06/29/21 16:50 06/29/21 16:50 Labs: Lab Results 06/29/21 06/29/21 06/29/21 Range/Units 16:50 16:50 16:50 WBC 7.6 (4.5-11.0) X10^3/uL RBC 3.98 L (4.5-5.9) X10^6/uL Hgb 11.8 L (13.5-17.5) g/dL Hct 37.3 L (41-53) % MCV 93.6 (80-100) fL MCH 29.6 (26-34) PG MCHC 31.6 (30-36) % RDW 19.6 H (11.6-14.8) % Plt Count 166 (150-400) X10^3/uL Neut % (Auto) 66.2 (50-75) % Lymph % (Auto) 18.6 L (25-40) % [place] % (Auto) 12.6 (3-14) % Eos % (Auto) 2.1 (2-4) % Baso % (Auto) 0.5 (0-2) % Neut # (Auto) 5000 (4964-2647) /uL Lymph # (Auto) 1400 (9416-9326) /uL [place] # (Auto) 1000 H (0-900) /uL Eos # (Auto) 200 (0-450) /uL Baso # (Auto) 0 (0-100) /uL PT 14.3 H (10.1-12.7) SECONDS INR 1.3 (0.9-1.3) APTT 37 H (26.4-36.2) SECONDS Sodium 136 L (137-145) mmol/L Potassium 4.6 (3.4-5.1) mmol/L Chloride 93 L (98-107) mmol/L Carbon Dioxide 30 (22-32) mmol/L BUN 34 H (9-20) mg/dL Creatinine 9.67 H* (0.66-1.25) mg/dL Estimated GFR 5.6 L (>60) mL/min BUN/Creatinine Ratio 3.5 L (6-22) Glucose 204 H (70-100) mg/dL Calcium 9.8 (8.4-10.2) mg/dL Phosphorus (2.5-4.5) mg/dL Magnesium (1.6-2.3) mg/dL Total Bilirubin 1.4 H (0.2-1.3) mg/dL AST 26 (17-59) IU/L ALT 24 (<50) IU/L Alkaline Phosphatase 288 H (38-126) U/L Total Creatine Kinase 52 L (55-170) U/L CK-MB (CK-2) TNP CK-MB (CK-2) Rel Index TNP Troponin I 0.082 H (0.01-0.034) ng/mL NT-Pro-B Natriuret Pep (<125) pg/mL Total Protein 8.6 H (6.3-8.2) g/dL Albumin 4.7 (3.5-5.0) g/dL Globulin 3.9 (1.7-4.1) g/dL Albumin/Globulin Ratio 1.2 (1.0-2.8) Lipase 294 (23-300) U/L SARS-CoV-2 (PCR) (Negative) 06/29/21 06/29/21 Range/Units 16:50 17:13 WBC (4.5-11.0) X10^3/uL RBC (4.5-5.9) X10^6/uL Hgb (13.5-17.5) g/dL Hct (41-53) % MCV (80-100) fL MCH (26-34) PG MCHC (30-36) % RDW (11.6-14.8) % Plt Count (150-400) X10^3/uL Neut % (Auto) (50-75) % Lymph % (Auto) (25-40) % [place] % (Auto) (3-14) % Eos % (Auto) (2-4) % Baso % (Auto) (0-2) % Neut # (Auto) (9736-4068) /uL Lymph # (Auto) (7969-3804) /uL [place] # (Auto) (0-900) /uL Eos # (Auto) (0-450) /uL Baso # (Auto) (0-100) /uL PT (10.1-12.7) SECONDS INR (0.9-1.3) APTT (26.4-36.2) SECONDS Sodium (137-145) mmol/L Potassium (3.4-5.1) mmol/L Chloride (98-107) mmol/L Carbon Dioxide (22-32) mmol/L BUN (9-20) mg/dL Creatinine (0.66-1.25) mg/dL Estimated GFR (>60) mL/min BUN/Creatinine Ratio (6-22) Glucose (70-100) mg/dL Calcium (8.4-10.2) mg/dL Phosphorus 8.5 H (2.5-4.5) mg/dL Magnesium 3.0 H (1.6-2.3) mg/dL Total Bilirubin (0.2-1.3) mg/dL AST (17-59) IU/L ALT (<50) IU/L Alkaline Phosphatase (38-126) U/L Total Creatine Kinase (55-170) U/L CK-MB (CK-2) CK-MB (CK-2) Rel Index Troponin I (0.01-0.034) ng/mL NT-Pro-B Natriuret Pep [id number] H (<125) pg/mL Total Protein (6.3-8.2) g/dL Albumin (3.5-5.0) g/dL Globulin (1.7-4.1) g/dL Albumin/Globulin Ratio (1.0-2.8) Lipase (23-300) U/L SARS-CoV-2 (PCR) Negative (Negative) ECG Data Attestation: I personally reviewed and interpreted this ECG as follows: Prior ECG tracings: not available for review Interpretation: Third degree heart block Ventricular rate of 29 Left axis deviation QRS 96 milliseconds Normal QTC Nonspecific ST T wave changes MDM Narrative Medical decision making narrative: Patient is on carvedilol. Was supposed to get dialysis today but did not. His potassium is unremarkable. Mag and phosphorus actually slightly elevated. Patient mentating fine and was essentially hypertensive upon arrival. 0.5 mg of atropine was administered without any change in his heart rate. EKG is consistent with third-degree heart block. Patient was placed on monitors. Was stable as we were attempting transfer to a facility that has cardiovascular and dialysis capability. While we were waiting the patient became acutely ill. Was having chest discomfort. Never lost consciousness however heart rate went to 12. Blood pressure dropped from 150 systolic to 110's systolic. Additional atropine administered without any change. He then was externally paced with good capture with a heart rate in the 50s. Patient given pain medication for the discomfort. Right arm systolic blood pressure 120 systolic. Has had to be performed manually. Initially dopamine started. I then discussed the case with with cardiology [facility] who agrees that the patient needs stat transfer. Discussed the case with Dr. Bermudez emergency physician who will accept the patient in transfer. Discuss the need for transfer with the patient he expressed understanding agreement. I did discuss the case with multiple facilities to include the [facility] however given his current external pacemaker status I do feel that the patient is unstable for transfer to [place]. Patient does require transfer to closest facility. Dopamine was addition to dobutamine. Our facility is not have I so paternal which was initially recommended by Cardiology receiving facility. Patient is currently stable for transport. Critical Care Time Critical Care Time Critical Care Time: Yes Total Critical Care Time: 40 Attestation: The high probability of a clinically significant, sudden or life threatening deterioration of the [cardiovascular system(s) required my full and direct attention, intervention and personal management. The aggregate critical care time was [40] minutes. This time is in addition to time spent performing reported procedures but includes the following: [x] Data Review and interpretation x Patient assessment and monitoring of vital signs [x] Documentation [x] Medication orders and management Discharge Plan [facility] Impression: Third degree heart block, End stage renal disease on dialysis Prescriptions: No Action gabapentin 100 mg capsule 100 mg PO BEDTIME Qty: 90 3RF clopidogrel 75 mg tablet 75 mg PO DAILY Qty: 90 3RF carvedilol 25 mg tablet 25 mg PO BID 0RF Label Comments: Hold if heart rate less than 50 Rx Instructions: must administer with a meal/food atorvastatin 40 mg tablet 40 mg PO DAILY 0RF furosemide 80 mg tablet 80 mg PO DAILY 0RF losartan 100 mg tablet 100 mg PO DAILY 0RF aspirin 81 mg tablet,delayed release (DR/EC) 81 mg PO DAILY 0RF sevelamer carbonate 800 mg tablet 1,600 mg PO TID 0RF Rx Instructions: with meals. oxycodone 5 mg tablet 5 mg PO Q6H PRN (Reason: pain) Qty: 10 0RF Referrals: Mahad Bradford MD [Primary Care Provider] -
[2021-06-29] MEDS: ATROPINE 1 MG/10 ML SYRINGE 0.5 MG IV (17:02)
[2021-06-29 17:10] LABS: Add Manual Diff / Slide Review NO; Basophils Absolute Auto 0 /uL (0-100); Basophils Percent Auto 0.5 % (0-2); Eosinophils Absolute Auto 200 /uL (0-450); Eosinophils Percent Auto 2.1 % (2-4); Hematocrit 37.3 % (41-53); Hemoglobin 11.8 g/dL (13.5-17.5); INR 1.3 (0.9-1.3); Lymphocytes Absolute Auto 1400 /uL (1100-4500); Lymphocytes Percent Auto 18.6 % (25-40); Mean Corpuscular HGB Conc 31.6 % (30-36); Mean Corpuscular Hemoglobin 29.6 PG (26-34); Mean Corpuscular Volume 93.6 fL (80-100); Monocytes Absolute Auto 1000 /uL (0-900); Monocytes Percent Auto 12.6 % (3-14); Neutrophils Absolute Auto 5000 /uL (1500-7000); Neutrophils Percent Auto 66.2 % (50-75); Platelet Count 166 X10^3/uL (150-400); Prothrombin Time 14.3 SECONDS (10.1-12.7); Red Blood Cell Count 3.98 X10^6/uL (4.5-5.9); Red Cell Distribution Width 19.6 % (11.6-14.8); White Blood Cell Count 7.6 X10^3/uL (4.5-11.0)
[2021-06-29 17:12] LABS: PTT Partial Thromboplastin Tim 37 SECONDS (26.4-36.2)
[2021-06-29 17:28] LABS: Alanine Aminotransferase 24 IU/L (<50); Albumin 4.7 g/dL (3.5-5.0); Albumin Globulin Ratio 1.2 (1.0-2.8); Alkaline Phosphatase 288 U/L (38-126); Aspartate Aminotransferase 26 IU/L (17-59); BUN Creatinine Ratio 3.5 (6-22); Bilirubin Total 1.4 mg/dL (0.2-1.3); Blood Urea Nitrogen 34 mg/dL (9-20); Calcium 9.8 mg/dL (8.4-10.2); Carbon Dioxide 30 mmol/L (22-32); Chloride 93 mmol/L (98-107); Creatine Kinase 52 U/L (55-170); Estimated Glomerular Filt Rate 5.6 mL/min (>60); Globulin 3.9 g/dL (1.7-4.1); Glucose 204 mg/dL (70-100); HEMOLYSIS < 15 (0-50); Lipase 294 U/L (23-300); Potassium 4.6 mmol/L (3.4-5.1); Sodium 136 mmol/L (137-145); Total Protein 8.6 g/dL (6.3-8.2)
[2021-06-29 17:29] LABS: Phosphorous 8.5 mg/dL (2.5-4.5)
[2021-06-29 17:39] LABS: Troponin I 0.082 ng/mL (0.01-0.034)
[2021-06-29 17:49] LABS: COVID19 -Nasal RAPID Negative (Negative)
[2021-06-29 17:53] LABS: NT-proBNP (BNP-Adult 18+) 115000 pg/mL (<125)
--- NOTE | 2021-06-29 18:28 | PC.NURSE ---
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 Patient states it came on fast and is slowly dissipating. Pulse remains in 30's. Provider Lanker Aware. No orders at this time
[2021-06-29] MEDS: ATROPINE 1 MG/10 ML SYRINGE IV (18:38)
[2021-06-29] MEDS: DOPAMINE HCL IN DEXTROSE 5 % 400 MG/250 ML PLAST..BAG 10 MG IV (18:48)
[2021-06-29] MEDS: DOPAMINE HCL IN DEXTROSE 5 % 400 MG/250 ML PLAST..BAG 36.571 MG IV (18:50)
[2021-06-29] MEDS: fentaNYL 100 MCG/2 ML INJ IV (18:50)
[2021-06-29] MEDS: HYDROMORPHONE 0.5 MG INJ IV ×3 (19:10→19:47)
[2021-06-29] MEDS: DOBUTAMINE 250 MG IN D5W 250 MG/250 ML IV.SOLN 29.257 MG IV (19:32)
--- NOTE | 2021-06-29 19:53 | PC.NURSE ---
[facility]
--- NOTE | 2021-06-29 20:00 | PC.NURSE ---
1830: Pt HR 27, verbal order for 0.5mg Atropine recieved/given. 1844: Pt reports chest pain has returned. HR 22, MD notified and went to bedside. External pacing initiated at 60bpm. IV Fentanyl and dilaudid given for pain. BP/O2 stable. Pt awake, alert, reporting discomfort from pacer pads. 1847: Dopamine drip started. Dilaudid given for discomfort. Pt remains awake and alert. Providers working on transfer. 1929: Per request of [facility] cardiology, dopamine drip d/c'd and dobutamine drip started. EMS arrives for transport. Pt alert/oriented. Spouse updated on visitor policy for [facility] ED. 1944. Pt d/c'd for transport to [facility]. IV pump with drip infusing and Zoll pacer sent with patient for transfer.
== END 2021-06-29 19:45 | disposition short-term general hospital (02) ==
PROVIDERS: Emergency Provider Emergency Medicine; PCP Student in an Organized Health Care Education/Training Program
DX: I44.2 Atrioventricular block, complete (principal); E11.22 Type 2 diabetes mellitus with diabetic chronic kidney disease; I12.0 Hypertensive chronic kidney disease with stage 5 chronic kidney disease or end stage renal disease; N18.6 End stage renal disease; Z99.2 Dependence on renal dialysis; Z20.822 Contact with and (suspected) exposure to COVID-19; Z95.0 Presence of cardiac pacemaker
CPT/HCPCS: 36415; 80053; 82550; 83690; 83735; 83880; 84100; 84484; 85025; 85610; 85730; 87635; 93005; 96365; 96375; 96376; 99285; 99291; 99292; C9803; J0461; J1170; J3010

== ENCOUNTER → 2021-07-07 15:19 | Outpatient (CLI) | payer MEDICARE, OTHER, SELFPAY ==
[2021-07-07 16:25] LABS: Hemoglobin A1C% w Est Avg Glu 5.9 % (4.0-6.0)
== END ==
PROVIDERS: PCP Student in an Organized Health Care Education/Training Program; Referring Provider Student in an Organized Health Care Education/Training Program; Visit Provider Student in an Organized Health Care Education/Training Program
DX: E11.9 Type 2 diabetes mellitus without complications (principal)
CPT/HCPCS: 36415; 83036

== ENCOUNTER 2021-12-30 18:36 | Emergency (ER) | payer MEDICARE, OTHER, SELFPAY ==
[2021-12-30 18:50] VITALS: BP 131/86; PULSE 65; RESP 16; TEMP 36.9; O2SAT 100; BMI 27.5
--- NOTE | 2021-12-30 19:01 | DI.RAD.S_ITS ---
PROCEDURE: XR CHEST 2V INDICATIONS: cough TECHNIQUE: 2 views of the chest were acquired. COMPARISON: [facility], CR, XR CHEST 1V, 01/13/2021, 10:30. [facility], CR, XR CHEST 2V, 12/23/2020, 11:29. FINDINGS: Surgical changes and devices: Right chest wall pulse generator with dual-chamber electrode leads in place. Aortic valve replacement. Lungs and pleura: Diffusely prominent interstitium, and perihilar peribronchial opacities. Mediastinum: Heart enlargement. Bones and chest wall: No suspicious bony abnormalities. Soft tissues appear unremarkable. IMPRESSION: Suspected pulmonary edema versus atypical infection. No pleural effusions. Cardiomegaly. Dictated by: Rosalino Mora M.D. on 12/30/2021 at 20:00 Approved by: Rosalino Mora M.D. on 12/30/2021 at 20:01
--- NOTE | 2021-12-30 19:01 | DI.CT.S_ITS ---
PROCEDURE: CT HEAD/BRAIN WO CON INDICATIONS: worst headache TECHNIQUE: Noncontrast 4.5 mm thick angled axial sections acquired from the foramen magnum to the vertex, with coronal and sagittal reformats. For radiation dose reduction, the following was used: automated exposure control, adjustment of mA and/or kV according to patient size. COMPARISON: [facility], CT, CT HEAD TPA, 10/14/2021, 12:30. FINDINGS: Image quality: Excellent. CSF spaces: Basal cisterns are patent. No extra-axial fluid collections. Ventricles are normal in size and shape. Brain: No midline shift. No intracranial masses or hemorrhage. Bell-white matter interface is normal. Mild volume loss. Similar prominent CSF space in the posterior fossa. Vascular calcifications. Skull and face: Calvarium and visualized facial bones are intact, without suspicious lesions. Sinuses: Visualized sinuses and mastoids are clear. IMPRESSION: No acute intracranial abnormality. Stable CT compared to 10/14/2021. Dictated by: Rosailno Mora M.D. on 12/30/2021 at 19:56 Approved by: Rosalino Mora M.D. on 12/30/2021 at 20:00
[2021-12-30 19:41] LABS: COVID19 -Nasal RAPID Negative (Negative)
--- NOTE | 2021-12-30 21:46 | ED_ITS ---
HPI - Headache General Chief Complaint: Headache Stated Complaint: Head Pressure/Cold Symptoms Time Seen by Provider: 12/30/21 19:00 Mode of arrival: Wheelchair History of Present Illness HPI Narrative: 56-year-old male nonsmoker with end-stage renal disease requiring hemodialysis on Mondays, Wednesdays, and Fridays, diabetes, carotid artery stenosis, [place], stroke presents with his in the chief complaint of a head cold for the past few days including nasal congestion, runny nose, sneezing and increased cough. Patient does admit that he has had a chronic cough for quite some time but it is notably worse over the past 2 days. He has had no fever or chills and denies any neck pain. He has no Chest Pain, N/V or diaphoresis. He denies other neurologic symptoms such as trouble with speech or extremity numbness, tingling or weakness. He states cough makes his head significantly worse and is yet to find any obvious palliation. He was feeling poorly earlier today and when discussing with his dialysis team was encouraged to present to the emergency de partment for evaluation. Related Data Home Medications Medication Instructions Recorded Confirmed sevelamer carbonate 800 mg tablet 1,600 mg PO TID 12/30/18 12/20/21 acetaminophen 325 mg tablet 650 mg PO Q6H PRN 12/20/21 12/20/21 (Tylenol) amlodipine 5 mg tablet 5 mg PO DAILY 12/20/21 12/20/21 atorvastatin 80 mg tablet 80 mg PO DAILY 12/20/21 12/20/21 benzonatate 100 mg capsule 100 mg PO TID 12/20/21 12/20/21 dronabinol 2.5 mg capsule 2.5 mg PO DAILY 12/20/21 12/20/21 gabapentin 100 mg capsule 100 mg PO BEDTIME 12/20/21 12/20/21 melatonin 3 mg capsule 6 mg PO BEDTIME PRN 12/20/21 12/20/21 metoprolol succinate 25 mg 25 mg PO DAILY 12/20/21 12/20/21 tablet,extended release 24 hr pantoprazole 40 mg tablet,delayed 40 mg PO DAILY 12/20/21 12/20/21 release quetiapine 25 mg tablet 12.5 mg PO BEDTIME 12/20/21 12/20/21 trazodone 150 mg tablet 150 mg PO BEDTIME PRN 12/20/21 12/20/21 Previous Rx's Medication Instructions Recorded clopidogrel 75 mg tablet 75 mg PO DAILY #90 tabs 04/16/21 doxycycline hyclate 100 mg tablet 100 mg PO BID #20 tabs 12/30/21 Allergies Allergy/AdvReac Type Severity Reaction Status Date / Time No Known Drug Allergies Allergy Verified 12/30/21 18:56 Review of Systems Review of Systems Narrative: GENERAL: Denies chills, fatigue, malaise, fever, sweats. HEENT: See HPI RESPIRATORY: See HPI CARDIOVASCULAR: Denies chest pain, palpitations, orthopnea, edema, GASTROINTESTINAL: Denies nausea, vomiting, abdominal pain, diarrhea, constipation, melena. : Denies dysuria, frequency, incontinence, hematuria, urinary retention. MUSCULOSKELETAL: denies weakness, joint pain, or bony pain SKIN: Denies rash, skin lesions, or other NEUROLOGIC: See HPI PSYCHIATRIC: No concerning psychosocial issues. 12 point review of systems is negative except for those stated above Patient History Medical History (Updated 12/30/21 @ 22:59 by Hamzah Horton DO) Carotid artery stenosis with cerebral infarction Chronic back pain (~1989) Coronary artery disease End stage renal disease on dialysis Essential hypertension Foot pain (~2010) History of hemodialysis (~2018) Hyperlipidemia associated with type 2 diabetes mellitus Kidney disease (~2018) Kidney failure (~2018) Presence of arterial-venous shunt (for dialysis) Shingles rash Tinnitus Type 2 diabetes mellitus Vertebral artery stenosis Wears glasses Surgical History (Updated 10/26/21 @ 16:48 by Chelsie Hagen MA) Anesthesia Fistula (~07/2018) History of repair of rotator cuff (~09/2016) S/P CABG x 2 (~2018) S/P TAVR (transcatheter aortic valve replacement) Family History Father Hypertension Hyperlipidemia Mother Diabetes mellitus History of heart disease Hypertension Hyperlipidemia Stroke Sister Hyperlipidemia Hypertension Sister Cancer Grandfather Cancer Grandmother Liver disease Grandfather Stroke Grandmother History of heart disease Social History Smoking Status: Never smoker Smoking Status: Never smoker alcohol intake frequency: a few times a month Substance Use Type: does not use Exam Narrative Exam Narrative: GENERAL: [56] year old patient appears stated age. Well-developed patient, in mild distress. GCS 15, patient blind since relatively recent hospitalization and complicated course HEAD: Atraumatic. Normocephalic. EYES: Pupils equal round and reactive. Extraocular motions intact. No scleral icterus. No injection or drainage. ENT: Nose without bleeding, purulent drainage. Throat without erythema, tonsillar hypertrophy or exudate. Airway patent. NECK: Trachea midline. Non tender no meningeal signs CARDIOVASCULAR: Regular rate and rhythm without murmurs, gallops, or rubs. RESPIRATORY: Clear to auscultation. Breath sounds equal bilaterally. No wheezes, rales, or rhonchi. GASTROINTESTINAL: Abdomen soft, non-tender, nondistended. EXTREMITIES: No edema or joint tenderness. BACK: Nontender without deformity or crepitance. No flank tenderness. NEURO: AOx3. SKIN: No rash or erythema of visible areas Initial Vital Signs Initial Vital Signs: Vital Signs Temperature 98.4 F 12/30/21 18:50 Pulse Rate 65 12/30/21 18:50 Respiratory Rate 16 12/30/21 18:50 Blood Pressure 131/86 12/30/21 18:50 Pulse Oximetry 100 12/30/21 18:50 Oxygen Delivery Method 12/30/21 18:50 Course Orders Ordered: ED Orders 12/30/21 19:01 CT head/brain wo con Stat Chest [XR chest 2V] Stat 12/30/21 19:20 COVID19 -Nasal RAPID/Pre-Proc Stat 12/30/21 19:41 Complete Blood Count AUTO DIFF Stat Comprehensive Metabolic Panel Stat NT-proBNP (BNP-Adult 18+) Stat Procalcitonin Stat Troponin & CK Cardiac Panel Stat Discontinued Medications Doxycycline Hyclate (Doxycycline Hyclate 100 Mg Tablet) 100 mg PO NOW ONE Stop: 12/30/21 22:56 Last Admin: 12/30/21 22:59 Dose: 100 mg Documented By: MADDY Ketorolac Tromethamine (Ketorolac 30 Mg/Ml Vial) 15 mg IV NOW ONE Stop: 12/30/21 21:47 Last Admin: 12/30/21 21:53 Dose: 15 mg Documented By: MADDY Metoclopramide HCl (Metoclopramide 10 Mg/2 Ml Inj) 10 mg IV NOW ONE Stop: 12/30/21 21:47 Last Admin: 12/30/21 21:53 Dose: 10 mg Documented By: MADDY Reevaluation(s) Reevaluation #1: Patient has significant improvement in symptoms after above-stated therapies Vital Signs Vital signs: Vital Signs - 8 hr 12/30/21 18:50 12/30/21 23:04 Temperature 98.4 F Pulse Rate 65 67 Respiratory Rate 16 18 Blood Pressure 131/86 145/85 H Pulse Oximetry 100 100 Oxygen Delivery Method Room Air Room Air MDM - Headache Lab Data Result diagrams: 12/30/21 19:41 12/30/21 19:41 Labs: Lab Results 12/30/21 12/30/21 12/30/21 Range/Units 19:20 19:41 19:41 WBC 7.8 (4.5-11.0) X10^3/uL RBC 3.68 L (4.5-5.9) X10^6/uL Hgb 11.3 L (13.5-17.5) g/dL Hct 33.3 L (41-53) % MCV 90.5 (80-100) fL MCH 30.6 (26-34) PG MCHC 33.8 (30-36) % RDW 16.4 H (11.6-14.8) % Plt Count 99 L (150-400) X10^3/uL Neut % (Auto) 63.7 (50-75) % Lymph % (Auto) 14.3 L (25-40) % Blackford % (Auto) 17.8 H (3-14) % Eos % (Auto) 3.8 (2-4) % Baso % (Auto) 0.4 (0-2) % Neut # (Auto) 5000 (0306-3215) /uL Lymph # (Auto) 1100 (7822-7938) /uL Blackford # (Auto) 1400 H (0-900) /uL Eos # (Auto) 300 (0-450) /uL Baso # (Auto) 0 (0-100) /uL Sodium (137-145) mmol/L Potassium (3.4-5.1) mmol/L Chloride (98-107) mmol/L Carbon Dioxide (22-32) mmol/L BUN (9-20) mg/dL Creatinine (0.66-1.25) mg/dL Estimated GFR (>60) mL/min BUN/Creatinine Ratio (6-22) Glucose (70-100) mg/dL Calcium (8.4-10.2) mg/dL Total Bilirubin (0.2-1.3) mg/dL AST (17-59) IU/L ALT (<50) IU/L Alkaline Phosphatase (38-126) U/L Total Creatine Kinase (55-170) U/L CK-MB (CK-2) CK-MB (CK-2) Rel Index Troponin I (0.01-0.034) ng/mL NT-Pro-B Natriuret Pep (<125) pg/mL Total Protein (6.3-8.2) g/dL Albumin (3.5-5.0) g/dL Globulin (1.7-4.1) g/dL Albumin/Globulin Ratio (1.0-2.8) Procalcitonin 0.82 H (<0.5) ng/mL SARS-CoV-2 (PCR) Negative (Negative) 12/30/21 Range/Units 19:41 WBC (4.5-11.0) X10^3/uL RBC (4.5-5.9) X10^6/uL Hgb (13.5-17.5) g/dL Hct (41-53) % MCV (80-100) fL MCH (26-34) PG MCHC (30-36) % RDW (11.6-14.8) % Plt Count (150-400) X10^3/uL Neut % (Auto) (50-75) % Lymph % (Auto) (25-40) % Blackford % (Auto) (3-14) % Eos % (Auto) (2-4) % Baso % (Auto) (0-2) % Neut # (Auto) (2251-3135) /uL Lymph # (Auto) (9800-8435) /uL Blackford # (Auto) (0-900) /uL Eos # (Auto) (0-450) /uL Baso # (Auto) (0-100) /uL Sodium 133 L (137-145) mmol/L Potassium 6.2 H (3.4-5.1) mmol/L Chloride 93 L (98-107) mmol/L Carbon Dioxide 24 (22-32) mmol/L BUN 50 H (9-20) mg/dL Creatinine 8.94 H* (0.66-1.25) mg/dL Estimated GFR 6 L (>60) mL/min BUN/Creatinine Ratio 5.6 L (6-22) Glucose 173 H (70-100) mg/dL Calcium 9.7 (8.4-10.2) mg/dL Total Bilirubin 1.8 H (0.2-1.3) mg/dL AST 50 (17-59) IU/L ALT 39 (<50) IU/L Alkaline Phosphatase 365 H (38-126) U/L Total Creatine Kinase 73 (55-170) U/L CK-MB (CK-2) TNP CK-MB (CK-2) Rel Index TNP Troponin I 0.113 H (0.01-0.034) ng/mL NT-Pro-B Natriuret Pep 77650 H (<125) pg/mL Total Protein 8.3 H (6.3-8.2) g/dL Albumin 4.6 (3.5-5.0) g/dL Globulin 3.7 (1.7-4.1) g/dL Albumin/Globulin Ratio 1.2 (1.0-2.8) Procalcitonin (<0.5) ng/mL SARS-CoV-2 (PCR) (Negative) MDM Narrative Medical decision making narrative: Patient with complex medical history presents with increasing headache with increasing cough productive of sputum. Head CT shows no significant finding such as bleed or mass. Chest x-ray demonstrates pulmonary edema versus atypical infection, elevated procalcitonin, increased cough with sputum suggestive of an infectious process. Headache shows tremendous improvement after treatment with above-stated therapies. Headache considerations include, but not limited to: Subarachnoid hemorrhage, but unlikely as patient denies sudden onset of pain, not worst of life, or neck pain Meningitis considered, but thought unlikely given lack of Brudzinski's, Kernig's sign, altered mental status or fever Giant cell arteritis considered, but thought unlikely given lack of unilateral findings, pain in cheondoism, vision change HTN Emergency considered, but thought unlikely given normal vitals Other serious diagnoses considered unlikely given lack of red flag findings such as sudden onset, increasing frequency, immunocompromise, systemic signs (fever, chills, stiff neck, or rash), focal neurologic findings, trauma, blood thinners, etc. Multiple etiologies for patient's symptoms considered including: [Subarachnoid hemorrhage versus mass versus other bleed versus meningitis versus other] Patient's symptoms improved over duration of stay with above-stated therapies. Findings and discharge diagnosis discussed with patient/family followed by verbalization of understanding Return precautions discussed with patient/family whom verbalize understanding. Discharge Plan Departure Patient Disposition: Home Clinical Impression: Headache after cough, Atypical pneumonia Instructions: DI for Headache, DI for Atypical Pneumonia Activity Restrictions/Additional Instructions: *You have been diagnosed with [headache and atypical pneumonia ]. As we discussed your labs and imaging are very reassuring. Specifically, your head CT is unremarkable there is no evidence of bleeding or abnormal finding *What to do: *Please continue to take your regular medications as directed. [ x] New medication prescriptions sent to your pharmacy: [[facility] in [place] ] [ ] New medication written as a paper prescription [ ] No new medications given *Please follow up with your primary care provider in 2-3 days, call for an appointment. Let them know you were seen in the Emergency Department and that we ask that you be seen in follow up. We will electronically transmit a record of today's note if your PCP is in our system *If you do not have a primary care provider please contact the [facility] [employer] line at [phone]. They will ask some questions about your medical history and help get you set up with a doctor in the community. *Return to Emergency Department if you should have any new, worsening or concerning symptoms, such as [fever greater than 101 F, shaking chills, worsening pain, persistent vomiting or other bothersome symptoms] Prescriptions: New doxycycline hyclate 100 mg tablet 100 mg PO BID Qty: 20 0RF No Action clopidogrel 75 mg tablet 75 mg PO DAILY Qty: 90 3RF amlodipine 5 mg tablet 5 mg PO DAILY atorvastatin 80 mg tablet 80 mg PO DAILY dronabinol 2.5 mg capsule 2.5 mg PO DAILY pantoprazole 40 mg tablet,delayed release (DR/EC) 40 mg PO DAILY metoprolol succinate 25 mg tablet extended release 24 hr 25 mg PO DAILY gabapentin 100 mg capsule 100 mg PO BEDTIME melatonin 3 mg capsule 6 mg PO BEDTIME PRN quetiapine 25 mg tablet 12.5 mg PO BEDTIME trazodone 150 mg tablet 150 mg PO BEDTIME PRN acetaminophen [Tylenol] 325 mg tablet 650 mg PO Q6H PRN benzonatate 100 mg capsule 100 mg PO TID sevelamer carbonate 800 mg tablet 1,600 mg PO TID Rx Instructions: with meals. Referrals: Mahad Bradford MD [Primary Care Provider] - Visit Report Forms: Patient Portal/API
[2021-12-30] MEDS: KETOROLAC 30 MG/ML VIAL 15 MG IV (21:53)
[2021-12-30] MEDS: METOCLOPRAMIDE 10 MG/2 ML INJ IV (21:53)
[2021-12-30 22:01] LABS: Alanine Aminotransferase 39 IU/L (<50); Albumin 4.6 g/dL (3.5-5.0); Albumin Globulin Ratio 1.2 (1.0-2.8); Alkaline Phosphatase 365 U/L (38-126); Aspartate Aminotransferase 50 IU/L (17-59); Bilirubin Total 1.8 mg/dL (0.2-1.3); Blood Urea Nitrogen 50 mg/dL (9-20); Calcium 9.7 mg/dL (8.4-10.2); Carbon Dioxide 24 mmol/L (22-32); Chloride 93 mmol/L (98-107); Creatine Kinase 73 U/L (55-170); Globulin 3.7 g/dL (1.7-4.1); Glucose 173 mg/dL (70-100); HEMOLYSIS < 15 (0-50); Sodium 133 mmol/L (137-145); Total Protein 8.3 g/dL (6.3-8.2)
[2021-12-30 22:08] LABS: Add Manual Diff / Slide Review NO; Basophils Absolute Auto 0 /uL (0-100); Basophils Percent Auto 0.4 % (0-2); Eosinophils Absolute Auto 300 /uL (0-450); Eosinophils Percent Auto 3.8 % (2-4); Hematocrit 33.3 % (41-53); Hemoglobin 11.3 g/dL (13.5-17.5); Lymphocytes Absolute Auto 1100 /uL (1100-4500); Lymphocytes Percent Auto 14.3 % (25-40); Mean Corpuscular HGB Conc 33.8 % (30-36); Mean Corpuscular Hemoglobin 30.6 PG (26-34); Mean Corpuscular Volume 90.5 fL (80-100); Monocytes Absolute Auto 1400 /uL (0-900); Monocytes Percent Auto 17.8 % (3-14); Neutrophils Absolute Auto 5000 /uL (1500-7000); Neutrophils Percent Auto 63.7 % (50-75); Platelet Count 99 X10^3/uL (150-400); Red Blood Cell Count 3.68 X10^6/uL (4.5-5.9); Red Cell Distribution Width 16.4 % (11.6-14.8); White Blood Cell Count 7.8 X10^3/uL (4.5-11.0)
[2021-12-30 22:09] LABS: Estimated Glomerular Filt Rate 6 mL/min (>60)
[2021-12-30 22:10] LABS: Potassium 6.2 mmol/L (3.4-5.1)
[2021-12-30 22:12] LABS: BUN Creatinine Ratio 5.6 (6-22)
[2021-12-30 22:13] LABS: Troponin I 0.113 ng/mL (0.01-0.034)
[2021-12-30 22:18] LABS: Procalcitonin 0.82 ng/mL (<0.5)
[2021-12-30 22:32] LABS: NT-proBNP (BNP-Adult 18+) 98700 pg/mL (<125)
[2021-12-30] MEDS: DOXYCYCLINE HYCLATE 100 MG TABLET PO (22:59)
[2021-12-30 23:04] VITALS: BP 145/85; PULSE 67; RESP 18; O2SAT 100
== END 2021-12-30 23:10 | disposition home or self-care (01) ==
PROVIDERS: Emergency Provider Emergency Medicine; PCP Student in an Organized Health Care Education/Training Program
DX: J18.9 Pneumonia, unspecified organism (principal); R51.9 Headache, unspecified; R05.9 Cough, unspecified; Z20.822 Contact with and (suspected) exposure to COVID-19
CPT/HCPCS: 36415; 70450; 71046; 80053; 82550; 83880; 84145; 84484; 85025; 87635; 96374; 96375; 99284; C9803; J1885; J2765

== ENCOUNTER 2022-03-22 17:53 | Emergency (ER) | payer MEDICARE, OTHER, SELFPAY ==
[2022-03-22 18:03] VITALS: BP 136/84; PULSE 80; RESP 15; TEMP 36; O2SAT 100
--- NOTE | 2022-03-22 18:06 | DI.US.S_ITS ---
PROCEDURE: US PERIPH VENOUS LOW EXTREM LT INDICATIONS: PAIN TECHNIQUE: Real-time imaging, as well as color and pulse Doppler interrogation, were performed of the lower extremity deep veins from the inguinal ligament to the popliteal fossa. COMPARISON: None. FINDINGS: The common femoral, femoral and popliteal veins are normally compressible, and free of intraluminal thrombus. Color and pulse Doppler demonstrate normal phasic intraluminal flow. There is normal augmentation response to distal compression maneuver. IMPRESSION: No evidence of deep venous thrombosis, left lower extremity Approved by: Tomas Bermudez M.D. on 03/22/2022 at 19:01
--- NOTE | 2022-03-22 19:21 | ED_ITS ---
HPI - Extremity Problem General Chief complaint: Extremity Problem,Nontraumatic Stated complaint: sent by DR Bradford blood clot lt leg Time Seen by Provider: 03/22/22 19:06 Mode of arrival: Wheelchair History of Present Illness HPI Narrative: Patient here with . Sent here from doctor's office for concern of blood clot to left calf. Pain ongoing for last 3 weeks. Worsening last 3 days. Patient getting physical therapy for strengthening overall because patient has been accepted for renal transplant. Patient is on dialysis. Patient being followed by [facility] transplant center. Denies any chest pain or dyspnea or palpitations. No prior history of blood clots in legs or lungs. Does have history of cellulitis in the legs. Patient has ongoing edema both legs and feet because it is very difficult for him chronically to be able to lay flat and elevate his legs. Patient does have history of cellulitis in both feet and legs in the past. No recent antibiotics. Patient states he did fall in the bathroom a few weeks ago. However he was able to stand back up in the bathroom and take the shower without any pain. Over 3 days later pain started in the left lateral upper calf. Related Data Home Medications Medication Instructions Recorded Confirmed sevelamer carbonate 800 mg tablet 1,600 mg PO TID 12/30/18 03/22/22 acetaminophen 325 mg tablet 650 mg PO Q6H PRN 12/20/21 03/22/22 (Tylenol) amlodipine 5 mg tablet 5 mg PO DAILY 12/20/21 03/22/22 atorvastatin 80 mg tablet 80 mg PO DAILY 12/20/21 03/22/22 benzonatate 100 mg capsule 100 mg PO TID 12/20/21 03/22/22 dronabinol 2.5 mg capsule 2.5 mg PO DAILY 12/20/21 03/22/22 gabapentin 100 mg capsule 100 mg PO BEDTIME 12/20/21 03/22/22 melatonin 3 mg capsule 6 mg PO BEDTIME PRN 12/20/21 03/22/22 metoprolol succinate 25 mg 25 mg PO DAILY 12/20/21 03/22/22 tablet,extended release 24 hr pantoprazole 40 mg tablet,delayed 40 mg PO DAILY 12/20/21 03/22/22 release quetiapine 25 mg tablet 12.5 mg PO BEDTIME 12/20/21 03/22/22 trazodone 150 mg tablet 150 mg PO BEDTIME PRN 12/20/21 03/22/22 Previous Rx's Medication Instructions Recorded clopidogrel 75 mg tablet 75 mg PO DAILY #90 tabs 04/16/21 doxycycline hyclate 100 mg tablet 100 mg PO BID #20 tabs 12/30/21 hydrocodone 5 mg-acetaminophen 325 1 tab PO Q6H PRN pain #18 tabs 03/22/22 mg tablet ondansetron 4 mg disintegrating 4 mg PO Q8H PRN nausea and 03/22/22 tablet vomiting #10 tabs Allergies Allergy/AdvReac Type Severity Reaction Status Date / Time No Known Drug Allergies Allergy Verified 03/22/22 18:03 Review of Systems Review of Systems Narrative: GENERAL: Denies chills, fatigue, malaise, fever, sweats. HEENT: Denies sinus pain, ear pain, sore throat RESPIRATORY: Denies dyspnea, cough CARDIOVASCULAR: Denies chest pain, palpitations GASTROINTESTINAL: Denies nausea, vomiting, abdominal pain : Denies dysuria, frequency, hematuria MUSCULOSKELETAL: Positive for edema and muscle or bony pain SKIN: Denies rash, skin lesions NEUROLOGIC: Denies weakness, numbness ROS Unobtainable: All systems reviewed & are unremarkable except as noted in HPI and below Patient History Medical History Carotid artery stenosis with cerebral infarction Chronic back pain (~1989) Coronary artery disease End stage renal disease on dialysis Essential hypertension Foot pain (~2010) History of hemodialysis (~2018) Hyperlipidemia associated with type 2 diabetes mellitus Kidney disease (~2018) Kidney failure (~2018) Presence of arterial-venous shunt (for dialysis) Shingles rash Tinnitus Type 2 diabetes mellitus Vertebral artery stenosis Wears glasses Surgical History Anesthesia Fistula (~07/2018) History of repair of rotator cuff (~09/2016) S/P CABG x 2 (~2018) S/P TAVR (transcatheter aortic valve replacement) Family History Father Hypertension Hyperlipidemia Mother Diabetes mellitus History of heart disease Hypertension Hyperlipidemia Stroke Sister Hyperlipidemia Hypertension Sister Cancer Grandfather Cancer Grandmother Liver disease Grandfather Stroke Grandmother History of heart disease Social History Smoking Status: Never smoker Smoking Status: Never smoker alcohol intake frequency: a few times a month Substance Use Type: does not use Exam Narrative Exam Narrative: GENERAL: in no distress, not toxic not dyspneic HEAD: Normocephalic. EYES: Pupils equal round No scleral icterus. ENT: Mucous membranes moist. NECK: Trachea midline. CARDIOVASCULAR: Regular rate and rhythm without murmurs RESPIRATORY: Clear to auscultation. Breath sounds equal bilaterally. No wheezes, rales, or rhonchi. GASTROINTESTINAL: Abdomen soft, non-tender EXTREMITIES: No gross deformities. Examination of left lower extremity need to toes exposed. There is circumferential edema of the calf ankle and foot. Palpable pedal pulse. Foot is warm soft and pink. No necrotic tissue. Light touch intact to foot and toes. There is increased pain with dorsiflexion of the ankle. Tender diffusely to the left calf. No palpable cords. However, there is severe pain with minimal movement and palpation. Skin is tight to touch. BACK: No flank tenderness. NEURO: AOx4. SKIN: Warm and dry PSYCH: Not anxious, is cooperative Initial Vital Signs Initial Vital Signs: Vital Signs Temperature 96.8 F L 03/22/22 18:03 Pulse Rate 80 03/22/22 18:03 Respiratory Rate 15 03/22/22 18:03 Blood Pressure 136/84 03/22/22 18:03 Pulse Oximetry 100 03/22/22 18:03 Oxygen Delivery Method 03/22/22 18:03 Course Course Course Narrative: No new issues during course of stay Orders Ordered: ED Orders 03/22/22 18:06 US periph venous low extrem lt Stat 03/22/22 20:17 XR ankle LT min 3V Stat XR tibia fibula LT 2V Stat 03/22/22 20:48 CBC Auto Diff [Complete Blood Count AUTO DIFF] Stat CMP [Comprehensive Metabolic Panel] Stat Discontinued Medications Hydrocodone Bitart/Acetaminophen (Hydrocodone/Acet 5/325 Tablet) 1 tab PO NOW ONE Stop: 03/22/22 21:28 Last Admin: 03/22/22 21:51 Dose: 1 tab Documented By: VICENTE Ondansetron HCl (Ondansetron 4 Mg Odt) 4 mg SL NOW ONE Stop: 03/22/22 21:28 Last Admin: 03/22/22 21:50 Dose: 4 mg Documented By: MLM Consultations Consultation #1: Dr. Annika Mead at bedside with patient. From Orthopedics. Has examined the patient's leg. At this time does not feel it is compartment syndrome. Recommends doing blood work and x-rays. At this time she thinks it is cellulitis Vital Signs Vital signs: Vital Signs - 8 hr 03/22/22 22:05 Pulse Rate 89 Respiratory Rate 18 Pulse Oximetry 100 Oxygen Delivery Method Room Air MDM - Extremity (Nontraumatic) Differential Diagnosis Differential diagnosis: Likely superficial thrombophlebitis, lower extremity edema, deep vein thrombosis of lower extremity and other (Cellulitis) Lab Data Result diagrams: 03/22/22 20:48 03/22/22 20:48 Labs: Lab Results 03/22/22 03/22/22 Range/Units 20:48 20:48 WBC 7.6 (4.5-11.0) X10^3/uL RBC 4.14 L (4.5-5.9) X10^6/uL Hgb 12.3 L (13.5-17.5) g/dL Hct 36.6 L (41-53) % MCV 88.4 (80-100) fL MCH 29.7 (26-34) PG MCHC 33.6 (30-36) % RDW 15.8 H (11.6-14.8) % Plt Count 165 (150-400) X10^3/uL Neut % (Auto) 65.2 (50-75) % Lymph % (Auto) 15.8 L (25-40) % Steele % (Auto) 15.7 H (3-14) % Eos % (Auto) 2.6 (2-4) % Baso % (Auto) 0.7 (0-2) % Neut # (Auto) 5000 (3729-2582) /uL Lymph # (Auto) 1200 (0453-5352) /uL Steele # (Auto) 1200 H (0-900) /uL Eos # (Auto) 200 (0-450) /uL Baso # (Auto) 100 (0-100) /uL Sodium 135 L (137-145) mmol/L Potassium 3.9 (3.4-5.1) mmol/L Chloride 90 L (98-107) mmol/L Carbon Dioxide 29 (22-32) mmol/L BUN 27 H (9-20) mg/dL Creatinine 6.59 H (0.66-1.25) mg/dL Estimated GFR 9 L (>60) mL/min BUN/Creatinine Ratio 4.1 L (6-22) Glucose 148 H (70-100) mg/dL Calcium 9.6 (8.4-10.2) mg/dL Total Bilirubin 1.4 H (0.2-1.3) mg/dL AST 48 (17-59) IU/L ALT 38 (<50) IU/L Alkaline Phosphatase 377 H (38-126) U/L Total Protein 8.9 H (6.3-8.2) g/dL Albumin 4.6 (3.5-5.0) g/dL Globulin 4.3 H (1.7-4.1) g/dL Albumin/Globulin Ratio 1.1 (1.0-2.8) Imaging Data US - DVT: Radiologist's Impression: [address] [address] Ultrasound Report Signed Patient: Ethan Remy MR#: [id number] : 1965 Acct:[id number] Age/Sex: 56 / M Date of Service: 03/22/22 Loc: ED Accession Number: [id number] ?? Procedure: US periph venous low extrem lt Ordering Provider: Hamzah Horton D.O. PROCEDURE:? US PERIPH VENOUS LOW EXTREM LT ? INDICATIONS:? PAIN ? TECHNIQUE:? Real-time imaging, as well as color and pulse Doppler interrogation, were performed of the lower extremity deep veins from the inguinal ligament to the popliteal fossa.? ? COMPARISON:? None. ? FINDINGS:? The common femoral, femoral and popliteal veins are normally compressible, and free of intraluminal thrombus.? Color and pulse Doppler demonstrate normal phasic intraluminal flow.? There is normal augmentation response to distal compression maneuver. ? ? IMPRESSION:? ? No evidence of deep venous thrombosis, left lower extremity ? ? ? Approved by: Tomas Bermudez M.D. on 03/22/2022 at 19:01? Extremity x-ray #1: Radiologist's Impression: [address] [address] XRay Report Signed Patient: Ethan Remy MR#: [id number] : 1965 Acct:[id number] Age/Sex: 56 / M Date of Service: 03/22/22 Loc: ED Accession Number: [id number] ?? Procedure: XR ankle LT min 3V Ordering Provider: Jose Masters MD PROCEDURE:? XR ANKLE LT MIN 3V ? INDICATIONS:? pain/injury ? TECHNIQUE:? 3 views of the ankle were acquired.? ? COMPARISON:? None. ? FINDINGS:? ? Bones:? No fractures or dislocations.? Ankle mortise is normally aligned.? No suspicious bony lesions.? ? Soft tissues:? There is mild periarticular soft tissue swelling medially.? No tibiotalar joint effusion.? Achilles tendon appears normal.? ? IMPRESSION:? ? 1.? No fracture or dislocation. ? ? Dictated by: Tayo Dunbar M.D. on 03/22/2022 at 21:17 ? ? Approved by: Tayo Dunbar M.D. on 03/22/2022 at 21:18 ? Extremity x-ray #2: Radiologist's Impression: [place] [address] XRay Report Signed Patient: Ethan Remy MR#: [id number] : 1965 Acct:[id number] Age/Sex: 56 / M Date of Service: 03/22/22 Loc: ED Accession Number: [id number] ?? Procedure: XR tibia fibula LT 2V Ordering Provider: Jose Masters MD PROCEDURE:? XR TIBIA FIBULA LT 2V ? INDICATIONS:? pain/injury ? TECHNIQUE:? 2 views of the tibia and fibula were acquired.? ? COMPARISON:? [facility], CR, XR ANKLE LT MIN 3V, 03/22/2022, 20:27. ? FINDINGS:? ? Bones:? No fractures or dislocations.? No suspicious bony lesions.? ? Soft tissues:? No suspicious soft tissue calcifications or masses.? ? IMPRESSION:? ? 1.? No fracture or dislocation. ? ? Dictated by: Tayo Dunbar M.D. on 03/22/2022 at 21:18 ? ? Approved by: Tayo Dunbar M.D. on 03/22/2022 at 21:18 ? MDM Narrative Medical decision making narrative: Appropriate for discharge home. Exam reassuring otherwise. Blood work and imaging reassuring as well. Reviewed with patient and results. This could be tendon strain tendinitis or muscle tear/strain as well. Orthopedics has seen patient. Not compartment syndrome. At this time patient and family do not feel this is cellulitis. He is had cellulitis many times and does not present like this. Return precautions reviewed with them. They desire discharge home. Discharge Plan Departure Patient Disposition: Home Clinical Impression: Leg swelling Instructions: DI for Leg Pain Activity Restrictions/Additional Instructions: Please call Dr. Mead office in the morning for re-evaluation of your leg pain. You may need MRI of the leg to evaluate for any muscle strain/muscle tear or tendinitis. No driving operating machinery when taking pain medication. Return if worse if any questions or concerns. May need to use your wheelchair at home for mobility until improvement. Return if worse if any questions or concerns Prescriptions: New hydrocodone-acetaminophen 5-325 mg tablet 1 tab PO Q6H PRN (Reason: pain) Qty: 18 0RF ondansetron 4 mg tablet,disintegrating 4 mg PO Q8H PRN (Reason: nausea and vomiting) Qty: 10 0RF No Action clopidogrel 75 mg tablet 75 mg PO DAILY Qty: 90 3RF amlodipine 5 mg tablet 5 mg PO DAILY atorvastatin 80 mg tablet 80 mg PO DAILY dronabinol 2.5 mg capsule 2.5 mg PO DAILY pantoprazole 40 mg tablet,delayed release (DR/EC) 40 mg PO DAILY metoprolol succinate 25 mg tablet extended release 24 hr 25 mg PO DAILY gabapentin 100 mg capsule 100 mg PO BEDTIME melatonin 3 mg capsule 6 mg PO BEDTIME PRN quetiapine 25 mg tablet 12.5 mg PO BEDTIME trazodone 150 mg tablet 150 mg PO BEDTIME PRN acetaminophen [Tylenol] 325 mg tablet 650 mg PO Q6H PRN benzonatate 100 mg capsule 100 mg PO TID sevelamer carbonate 800 mg tablet 1,600 mg PO TID Rx Instructions: with meals. doxycycline hyclate 100 mg tablet 100 mg PO BID Qty: 20 0RF Referrals: Mahad Bradford MD [Primary Care Provider] - Annika Mead MD [Physician] - Visit Report Forms: Patient Portal/API
--- NOTE | 2022-03-22 20:17 | DI.RAD.S_ITS ---
PROCEDURE: XR TIBIA FIBULA LT 2V INDICATIONS: pain/injury TECHNIQUE: 2 views of the tibia and fibula were acquired. COMPARISON: [facility], CR, XR ANKLE LT MIN 3V, 03/22/2022, 20:27. FINDINGS: Bones: No fractures or dislocations. No suspicious bony lesions. Soft tissues: No suspicious soft tissue calcifications or masses. IMPRESSION: 1. No fracture or dislocation. Dictated by: Tayo Dunbar M.D. on 03/22/2022 at 21:18 Approved by: Tayo Dunbar M.D. on 03/22/2022 at 21:18
--- NOTE | 2022-03-22 20:17 | DI.RAD.S_ITS ---
PROCEDURE: XR ANKLE LT MIN 3V INDICATIONS: pain/injury TECHNIQUE: 3 views of the ankle were acquired. COMPARISON: None. FINDINGS: Bones: No fractures or dislocations. Ankle mortise is normally aligned. No suspicious bony lesions. Soft tissues: There is mild periarticular soft tissue swelling medially. No tibiotalar joint effusion. Achilles tendon appears normal. IMPRESSION: 1. No fracture or dislocation. Dictated by: Tayo Dunbar M.D. on 03/22/2022 at 21:17 Approved by: Tayo Dunbar M.D. on 03/22/2022 at 21:18
--- NOTE | 2022-03-22 20:29 | PM.HP.1 ---
History of Present Illness History of Present Illness Date Patient Seen: 03/22/22 Time Patient Seen: 20:40 Chief complaint: sent by DR Bradford, blood clot lt leg Narrative: This is a 56-year-old gentleman who describes about a 3 week history of ongoing left leg pain. He has a very complicated past medical history with a history of a recent valve replacement, chronic kidney failure, recurrent bilateral lower extremity cellulitis, and is currently on the renal transplant wait list for a family donor. He notes he has been on dialysis for about 4 years. He is blind and has a history of neuropathy. He has been trying to increase his physical activity so that he qualifies to get his kidney transplant and has been going to physical therapy. He noted some left leg and calf pain which has been slowly getting a little worse. He is used Tylenol and ibuprofen at home with limited benefit. He saw his primary care practitioner who referred him to [facility] Emergency room to rule out a blood clot. He takes Plavix as his anticoagulant. He had a history of an injury about 3 weeks ago when he fell and got his leg twisted up but really did not know notes significant pain until a couple of days after the acute injury. He does have some chronic neuropathic pain in his legs. Patient History Medical History Carotid artery stenosis with cerebral infarction Chronic back pain (~1989) Coronary artery disease End stage renal disease on dialysis Essential hypertension Foot pain (~2010) History of hemodialysis (~2018) Hyperlipidemia associated with type 2 diabetes mellitus Kidney disease (~2018) Kidney failure (~2018) Presence of arterial-venous shunt (for dialysis) Shingles rash Tinnitus Type 2 diabetes mellitus Vertebral artery stenosis Wears glasses Surgical History Anesthesia Fistula (~07/2018) History of repair of rotator cuff (~09/2016) S/P CABG x 2 (~2018) S/P TAVR (transcatheter aortic valve replacement) Family & Social History Family History Father Hypertension Hyperlipidemia Mother Diabetes mellitus History of heart disease Hypertension Hyperlipidemia Stroke Sister Hyperlipidemia Hypertension Sister Cancer Grandfather Cancer Grandmother Liver disease Grandfather Stroke Grandmother History of heart disease Safety & Behavioral: Feels Safe in Current Yes Environment Been Physically Hurt or No Threatened By a Person Tobacco & Substance use: Smoking Status Never smoker alcohol intake frequency a few times a month Substance Use Type does not use Meds Home Medications and Allergies Home Medications Medication Instructions Recorded Confirmed Type sevelamer carbonate 800 mg tablet 1,600 mg PO TID 12/30/18 03/22/22 History clopidogrel 75 mg tablet 75 mg PO DAILY #90 tabs 04/16/21 03/22/22 Rx acetaminophen 325 mg tablet 650 mg PO Q6H PRN 12/20/21 03/22/22 History (Tylenol) amlodipine 5 mg tablet 5 mg PO DAILY 12/20/21 03/22/22 History atorvastatin 80 mg tablet 80 mg PO DAILY 12/20/21 03/22/22 History benzonatate 100 mg capsule 100 mg PO TID 12/20/21 03/22/22 History dronabinol 2.5 mg capsule 2.5 mg PO DAILY 12/20/21 03/22/22 History gabapentin 100 mg capsule 100 mg PO BEDTIME 12/20/21 03/22/22 History melatonin 3 mg capsule 6 mg PO BEDTIME PRN 12/20/21 03/22/22 History metoprolol succinate 25 mg 25 mg PO DAILY 12/20/21 03/22/22 History tablet,extended release 24 hr pantoprazole 40 mg tablet,delayed 40 mg PO DAILY 12/20/21 03/22/22 History release quetiapine 25 mg tablet 12.5 mg PO BEDTIME 12/20/21 03/22/22 History trazodone 150 mg tablet 150 mg PO BEDTIME PRN 12/20/21 03/22/22 History doxycycline hyclate 100 mg tablet 100 mg PO BID #20 tabs 12/30/21 03/22/22 Rx Allergies Allergy/AdvReac Type Severity Reaction Status Date / Time No Known Drug Allergies Allergy Verified 03/22/22 18:03 Review of Systems Review of Systems Narrative: No recent fever chills, chronic numbness in bilateral lower extremities, pain has been slowly getting a little worse. Has a history of chronic cellulitis but has not had severe recent swelling or erythema. Exam Vital Signs (past 8 hours): - 03/22/22 18:03 Temperature 96.8 F L Pulse Rate 80 Respiratory Rate 15 Blood Pressure 136/84 Pulse Oximetry 100 Oxygen Delivery Method Room Air Oxygen Delivery Method Room Air Narrative Exam Narrative: He is resting comfortably in a chair, HEENT is benign, he is not in apparent acute distress, when his left knee is flexed he is able to do range of motion in the foot and ankle with minimal pain, he does have significant pain with range of motion in his ankle when his knee is fully extended. He has moderate swelling of the left lower extremity. He has a palpable dorsalis pedis and posterior tibial pulse. There is really minimal erythema, with his knee flexed he has no pain with passive stress of his common toe flexors extensors and ankle flexor and extensor, there is no obvious deformity there is obvious swelling in the left leg which is asymmetrical. Right lower extremity is benign. There is no open skin lesions. There is moderate decreased sensation in bilateral feet, he does have some pain with range of motion in his knee Objective Labs Labs: Labs are pending, x-rays pending, ultrasound is negative for DVT Assessment & Plan Assessment and plan (1) Leg swelling: Status: Acute (2) Diabetic neuropathy associated with type 2 diabetes mellitus: Qualifiers: Diabetes mellitus complication detail: diabetic polyneuropathy Qualified Code(s): E11.42 - Type 2 diabetes mellitus with diabetic polyneuropathy Status: Chronic (3) End stage renal disease on dialysis: Status: Chronic Plan He has asymmetrical left leg swelling. He is not on a blood thinner, his fairly mild pain with range of motion in his foot and ankle when his knee is bent. Has a history of chronic neuropathy and chronic cellulitis. He did have an injury about 3 weeks ago when he fell. His pain has been getting slowly worse. I have recommended supplemental workup with a CBC and plain x-rays to rule out trauma. He might be a candidate for workup of his Achilles tendon as he is having tendinitis type symptoms with an MRI scan. He has a pacemaker but reportedly did have an MRI scan related to his cardiac issues after he had his pacemaker placed. He is currently being evaluated by the emergency room physician. Time Spent With Patient Critical Care time: I spent a total of [] minutes of critical care time on this patient's care today; this time is exclusive of procedural time.
[2022-03-22 20:58] LABS: Add Manual Diff / Slide Review NO; Basophils Absolute Auto 100 /uL (0-100); Basophils Percent Auto 0.7 % (0-2); Eosinophils Absolute Auto 200 /uL (0-450); Eosinophils Percent Auto 2.6 % (2-4); Hematocrit 36.6 % (41-53); Hemoglobin 12.3 g/dL (13.5-17.5); Lymphocytes Absolute Auto 1200 /uL (1100-4500); Lymphocytes Percent Auto 15.8 % (25-40); Mean Corpuscular HGB Conc 33.6 % (30-36); Mean Corpuscular Hemoglobin 29.7 PG (26-34); Mean Corpuscular Volume 88.4 fL (80-100); Monocytes Absolute Auto 1200 /uL (0-900); Monocytes Percent Auto 15.7 % (3-14); Neutrophils Absolute Auto 5000 /uL (1500-7000); Neutrophils Percent Auto 65.2 % (50-75); Platelet Count 165 X10^3/uL (150-400); Red Blood Cell Count 4.14 X10^6/uL (4.5-5.9); Red Cell Distribution Width 15.8 % (11.6-14.8); White Blood Cell Count 7.6 X10^3/uL (4.5-11.0)
[2022-03-22 21:09] LABS: Alanine Aminotransferase 38 IU/L (<50); Albumin 4.6 g/dL (3.5-5.0); Albumin Globulin Ratio 1.1 (1.0-2.8); Alkaline Phosphatase 377 U/L (38-126); Aspartate Aminotransferase 48 IU/L (17-59); BUN Creatinine Ratio 4.1 (6-22); Bilirubin Total 1.4 mg/dL (0.2-1.3); Blood Urea Nitrogen 27 mg/dL (9-20); Calcium 9.6 mg/dL (8.4-10.2); Carbon Dioxide 29 mmol/L (22-32); Chloride 90 mmol/L (98-107); Estimated Glomerular Filt Rate 9 mL/min (>60); Globulin 4.3 g/dL (1.7-4.1); Glucose 148 mg/dL (70-100); HEMOLYSIS < 15 (0-50); Potassium 3.9 mmol/L (3.4-5.1); Sodium 135 mmol/L (137-145); Total Protein 8.9 g/dL (6.3-8.2)
[2022-03-22] MEDS: ONDANSETRON 4 MG ODT SL (21:50)
[2022-03-22] MEDS: HYDROCODONE/ACET 5/325 TABLET 1 TAB PO (21:51)
[2022-03-22 22:05] VITALS: PULSE 89; RESP 18; O2SAT 100
== END 2022-03-22 22:05 | disposition home or self-care (01) ==
PROVIDERS: Emergency Provider Emergency Medicine; PCP Student in an Organized Health Care Education/Training Program; Referring Provider Student in an Organized Health Care Education/Training Program
DX: M79.89 Other specified soft tissue disorders (principal); E11.42 Type 2 diabetes mellitus with diabetic polyneuropathy; N18.6 End stage renal disease; Z99.2 Dependence on renal dialysis
CPT/HCPCS: 36415; 73590; 73610; 80053; 85025; 93971; 99283; 99284